=== PATIENT | female | born 1950 | race Caucasian/White ===

== ENCOUNTER 2017-11-26 14:00 | Inpatient (IN) | payer MEDICARE ==
[~2017-11-26] VITALS: Ht 149.9 cm; Wt 69.4 kg
[2017-11-26] MEDS ORDERED: BUPR150T17 PO (14:56)
[2017-11-26] MEDS ORDERED: LEVO100T5 PO (14:56)
[2017-11-26] MEDS ORDERED: [UNRECOGNIZED DRUG - CODE] PO (14:56)
[2017-11-26] MEDS ORDERED: BACL20TA PO (14:56)
[2017-11-26] MEDS ORDERED: LORA10TA75 PO (14:56)
[2017-11-26] MEDS ORDERED: TRAM50TA PO (14:56)
[2017-11-26 15:22] VITALS: BP 155/88
[2017-11-26 16:08] LABS: BILIRUBIN,URINE NEGATIVE (NEGATIVE); UROBILINOGEN,URINE NORMAL (NEGATIVE)
[2017-11-26 16:12] LABS: HEMOGLOBIN 13.4 g/dL (12.0-15.0); MEAN CELL HGB 32.8 pg (26-34); MEAN CELL HGB CONCENTRATION 33.6 g/dL (33-37); MEAN CORP VOLUME 97.8 fL (78-100); MEAN PLATELET VOLUME 10.6 fL (7.8-11.0); RED CELL DISTRIBUTION WIDTH 12.8 % (11.5-14.5); WHITE BLOOD CELL 9.7 10^3/uL (4.5-11.0)
[2017-11-26 16:25] LABS: CALCIUM 9.8 mg/dL (8.4-10.5); CARBON DIOXIDE 27.4 mmol/L (20.0-32)
[2017-11-26 16:31] LABS: APPEARANCE,URINE CLEAR (CLEAR); UA COLOR YELLOW (YELLOW)
--- NOTE | 2017-11-26 16:37 | DIREP ---
PROCEDURE:CHEST 2 VIEWS COMPARISON:None. INDICATIONS:PRE-OP OA RIGHT HIP FINDINGS: LUNGS/PLEURA:No significant pulmonary parenchymal abnormalities. No effusions. VASCULATURE:Normal. Unremarkable pulmonary vasculature. CARDIAC:Normal. No cardiac silhouette abnormality or cardiomegaly. MEDIASTINUM:Normal. No visible mass or adenopathy. BONES:No acute pathology. Mild degenerative changes of the spine. OTHER:Negative. CONCLUSION:No acute cardiac or pulmonary disease. Dictated by: Juan Thompson M.D. on 11/26/2017 at 04:36 PM
[2017-12-01] VITALS (10 sets, daily range): BP systolic 90–139; BP diastolic 58–80
[2017-12-01] MEDS ORDERED: LACTATED RINGERS 1,000 ML ONE ×2 (04:27→14:52)
[2017-12-01] MEDS ORDERED: VANCOMYCIN HCL 1 GM ONE (04:28)
[2017-12-01] MEDS ORDERED: NS 250ML 250 ML IV ONE ×2 (04:28→08:52)
[2017-12-01] MEDS ORDERED: BACTROBAN TP ONE (06:00)
[2017-12-01] MEDS: TYLENOL PO SCH ×4 (06:30→23:48)
[2017-12-01] MEDS ORDERED: NEURONTIN PO SCH ×2 (06:30→08:00)
[2017-12-01] MEDS ORDERED: TYLENOL PO ONE ×3 (06:30→09:15)
[2017-12-01] MEDS ORDERED: TYLENOL PO SCH (08:00)
[2017-12-01] MEDS ORDERED: CELEBREX PO ONE ×3 (08:00→09:00)
[2017-12-01] MEDS ORDERED: NEOSTIGMINE ONE (08:13)
[2017-12-01] MEDS ORDERED: LIDOCAINE 2% VIAL ONE (08:13)
[2017-12-01] MEDS ORDERED: ZOFRAN ONE (08:13)
[2017-12-01] MEDS ORDERED: DECADRON ONE (08:13)
[2017-12-01] MEDS ORDERED: QUELICIN ONE (08:14)
[2017-12-01] MEDS ORDERED: VERSED ONE (08:14)
[2017-12-01] MEDS ORDERED: DIPRIVAN IV ONE (08:14)
[2017-12-01] MEDS ORDERED: SUBLIMAZE ONE (08:14)
[2017-12-01] MEDS ORDERED: ZEMURON IV ONE (08:14)
[2017-12-01] MEDS ORDERED: NAROPIN 0.5% 5 MG/ML VIAL ONE (08:15)
[2017-12-01] MEDS ORDERED: DURAMORPH ONE (08:15)
[2017-12-01] MEDS ORDERED: CLONIDINE 1,000 MCG/10 ML VIAL EP ONE (08:15)
[2017-12-01] MEDS ORDERED: NS 100ML 200 ML IV ONE ×2 (08:52→14:52)
[2017-12-01] MEDS ORDERED: SODIUM CHLORIDE IR ONE (08:52)
[2017-12-01] MEDS ORDERED: NS 3000ML IRR IR ONE (08:52)
[2017-12-01] MEDS ORDERED: LACTATED RINGERS 1,000 ML IV SCH ×2 (09:00→14:30)
[2017-12-01] MEDS ORDERED: VANCOMYCIN HCL 1 GM in NS 250ML 250 ML IV ONE (09:00)
[2017-12-01] MEDS ORDERED: NEURONTIN ONE (09:15)
[2017-12-01] MEDS ORDERED: CELEBREX ONE (09:15)
[2017-12-01] MEDS ORDERED: TRANSDERM-SCOP TD ONE ×2 (09:16→09:27)
[2017-12-01] MEDS ORDERED: TRANEXAMIC ACID IV ONE (09:42)
[2017-12-01] MEDS ORDERED: ZOFRAN IV PRN ×2 (14:30→15:00)
[2017-12-01] MEDS ORDERED: VENTOLIN IH PRN (14:30)
[2017-12-01] MEDS ORDERED: MORPHINE SULFATE IV PRN (14:30)
[2017-12-01] MEDS ORDERED: DEMEROL IV PRN ×2 (14:30→15:00)
[2017-12-01] MEDS ORDERED: PHENERGAN IV PRN (14:30)
[2017-12-01] MEDS ORDERED: SUBLIMAZE IV PRN (14:30)
[2017-12-01] MEDS: LACTATED RINGERS 1,000 ML IV SCH (14:40)
[2017-12-01] MEDS ORDERED: EPHEDRINE SULFATE ONE (14:53)
[2017-12-01] MEDS ORDERED: ULTRAM PO PRN (15:00)
[2017-12-01] MEDS ORDERED: CEPACOL SORE THROAT LOZENGE MM PRN (15:00)
--- NOTE | 2017-12-01 15:35 | NUR ---
REPORT PT ARRIVED TO FLOOR , BEDSIDE REPORT RECEIVED, MONITORS INTACT CALL LIGHT IN REACH, HAND RAIL UP X2, PREVENA VAC NOTED TO RIGHT HIP, NO S/S OF DISTRESS NOTED, PT SLEEPING RR 16 EVEN AND UNLABORED. LEFT IN SEMIFOWLERS.
[2017-12-01] MEDS: ULTRAM PO PRN ×2 (16:23→20:47)
--- NOTE | 2017-12-01 16:42 | HPH ---
ADMIT DATE: 12/01/2017 CHIEF COMPLAINT: Painful right hip. HISTORY OF PRESENT ILLNESS: The patient is a 67-year-old female with a several year history of pain about the right hip secondary to osteoarthritis. She also has Sjogren syndrome. She is no better with Motrin 800 mg 3 times a day as well as tramadol. She complains of limping and has had to use a cane over the last several months. She complained of right groin pain as well as thigh pain and lower back pain. MEDICATIONS: Include tramadol, ibuprofen, levothyroxine, Wellbutrin, Macrodantin as well as inhalers. PREVIOUS SURGICAL PROCEDURES: Herniorrhaphy, tonsillectomy and 2 breast biopsies. PAST MEDICAL HISTORY: Include asthma, depression, GERD, history of urinary tract infections. ALLERGIES: THE PATIENT IS ALLERGIC TO ROCEPHIN WELL MORPHINE. SOCIAL HISTORY: The patient socially is . She does not smoke or drink. REVIEW OF SYSTEMS: Negative for chest pain, shortness of breath, nausea, vomiting, melena, hematochezia, dysuria, hematuria, fever, chills, or weight loss. FAMILY HISTORY: Positive for hypertension and coronary artery disease as well as asthma and COPD. PHYSICAL EXAMINATION: GENERAL: Shows that she is 4 feet 11 inches, weighs 150 pounds. HEENT: Within normal limits for her age. CHEST: Clear to auscultation. HEART: Regular rate and rhythm, no murmur. ABDOMEN: Soft and nontender. EXTREMITIES: The patient's right hip can be flexed to 95 degrees. She has about a 10 degree flexion contracture. The hip could be externally rotated 25 degrees. She has 10 degrees of internal rotation. NEUROLOGICAL: The patient is awake and alert. She is oriented x 3. Her cranial nerves 2-12 are grossly intact. She has 5/5 strength of all upper and lower extremities. IMAGING STUDIES: The patient's x-rays show that she is circumferentially [id number] about the right hip. ASSESSMENT: Osteoarthritis, right hip. Other diagnoses include asthma, history of urinary tract infection, GERD. PLAN: The patient is being taken to the operating room for right total hip arthroplasty. The risks and hazards of the procedure have been discussed with the patient. She understands the risk involved and wants to proceed as planned. Len Carter MD DR: DAVID/marlene JOB# [id number]
--- NOTE | 2017-12-01 16:45 | OPH ---
DATE OF SURGERY: 12/01/2017 PREOPERATIVE DIAGNOSIS: Osteoarthritis of the right hip. POSTOPERATIVE DIAGNOSIS: Osteoarthritis of the right hip. OPERATIVE PROCEDURE: Right total hip arthroplasty using Medacta size 0 stem with a 36 mm ceramic head and a size 50 acetabulum with size 50 polyethylene liner, making it a ceramic on polyethylene total hip arthroplasty. The patient had a short neck length with 50 acetabulum and a size 0 stem,. ANESTHESIA: General endotracheal. BLOOD LOSS: 600 mL. DRAINS: None. SURGEON: Len Carter MD DESCRIPTION OF INDICATIONS: A 67-year-old female with several year history of pain about the right hip secondary to osteoarthritis. She takes ibuprofen and tramadol for the pain. She has difficulty doing her daily activities and has pain with just household ambulation. She has to use a cane to ambulate. She tried therapy in the past without relief. X-rays show that she is circumferentially [id number] about the right hip. DESCRIPTION OF PROCEDURE: The patient was placed in the operating table in the supine position. A general endotracheal anesthetic was induced without difficulty. The patient had the right foot and ankle well padded and placed into the traction boot. Traction boot had a piece of egg crate mattress covering foot. The right lower extremity was then attached to the traction unit. Right lower extremity was then sterilely prepped and draped. The patient had an anterior incision made about the hip. The incision was taken through the skin and the subcutaneous tissues. The bleeding was controlled with cautery. The tensor fascia was opened in line with the skin incision and the muscle belly was reflected laterally. The patient then had the rectus fascia opened and the rectus muscle was reflected medially. The circumflex vessels were identified and coagulated with the Aquamantys device. The patient then had the fat pad over the anterior capsule excised. The capsular incision was made and the capsule was retracted proximally and laterally. The femoral neck cut was made and then a femoral head was removed from the acetabulum with a corkscrew device. The fovea was cleared of any soft tissue. The labrum was excised. The patient then had the acetabulum reamed up to a size initially 48 and then subsequently 50. The initial 48 acetabulum was placed, however, later in the case after we reduced the femoral component, It was obvious that the acetabular component was not stable. Therefore, the 48 acetabular component was removed and it was reamed up to a 50. We put a 50 press fit shell into the acetabulum and secured it with a posterior-superior screw. C-arm showed satisfactory tilt version with good stability and good fit. The patient then had the posterior ligaments released. The hip was placed into maximal external rotation and hyperextension. The patient had the canal opened with a curette and then subsequently with the canal finder. The canal was then sequentially reamed up to a size 0 with some difficulty. The patient's trial reduction was done with a 0 stem and a standard neck with a 36 mm short neck head. The hip was reduced. There was good stability clinically and radiographically. There may have been a little bit of difference in the leg length, but the patient had good stability. We elected to go with the stability option as opposed to the instability. The trial femoral components were then removed. The bone ends were copiously irrigated and dried. A size 0 AMIS stem was then press fit into position. The 36 ceramic head that was-3 neck was then impacted on to the Barrera taper neck. Again, the hip was reduced. There was good stability clinically and radiographically. The patient then had the wound irrigated with Betadine-containing solution for 3 minutes. The capsule was closed with 0 PDS in an interrupted manner. The tensor fascia was closed with a #2 PDS barbed in a running manner and the subcutaneous was closed with 2-0 barbed Monocryl. The skin was closed with adrianne. A Prevena suction dressing was applied. The patient was extubated in the operating room, sent to recovery in stable condition. Len Carter MD DR: DAVID/marlene JOB# [id number]
--- NOTE | 2017-12-01 16:57 | DIREP ---
PROCEDURE:XRAY HIP MIN 2VW-RT COMPARISON:None. INDICATIONS:postop FINDINGS: Arthroplasty the right hip joint in good alignment and without visualized complication. Postoperative adrianne overlying the skin. Expected subcutaneous emphysema. CONCLUSION: Arthroplasty of the right hip in good alignment and without visualized complication. Dictated by: Alen Benson DO on 12/01/2017 at 04:55 PM
[2017-12-01 18:11] LABS: HEMOGLOBIN 10.9 g/dL (12.0-15.0); MEAN CELL HGB 33.3 pg (26-34); MEAN CELL HGB CONCENTRATION 33.6 g/dL (33-37); MEAN CORP VOLUME 99.1 fL (78-100); MEAN PLATELET VOLUME 10.7 fL (7.8-11.0); RED CELL DISTRIBUTION WIDTH 12.9 % (11.5-14.5)
--- NOTE | 2017-12-01 18:22 | PRM.PN ---
Subjective Subjective Date: Dec 01, 2017 Time: 18:20 Subjective AWake and alert Eating dinner Afebrile VSS NVM+ Some pain HGB io.9 postop anemia from surgery expected Stable Patient History: Asthma G8 SISTER Cerebrovascular disorder 33 FATHER, , Age:84 Chronic obstructive pulmonary disease G8 BROTHER Congestive heart failure 33 FATHER, , Age:84 Diabetes mellitus 19 CHILD FH: skin cancer 33 FATHER, , Age:84 Hypertension 32 MOTHER, , Age:82 33 FATHER, , Age:84 No known health problems G8 SISTER 19 CHILD 19 CHILD 19 CHILD No Family History of: Alzheimer's disease Diabetes insipidus Parkinson's disease VTE VTE Risk Total Score: >5 VTE Risk Score VTE Risk: Score 0-1 = Low Risk (Aggressive mobilization; early ambulation; no VTE prophylaxis required) Score 2: Moderate Risk (Intermittent/Pneumatic Compression Device OR Lovenox/Heparin/Coumadin) Score 3-4: High Risk (Intermittent/Pneumatic Compression Device AND Lovenox/Heparin/Coumadin) Score > or =5: Highest Risk (Intermittent/Pneumatic Compression Device AND Lovenox/Heparin/Coumadin) Review of Systems Allergies: Coded Allergies: ceftriaxone (Verified Allergy, Severe, Anaphylaxis Shock, 11/26/17) ipratropium (Verified Allergy, Severe, BLISTERS IN MOUTH, 11/26/17) lettuce (Verified Allergy, Severe, Anaphylaxis Shock, 11/26/17) milk (Verified Allergy, Severe, Anaphylaxis Shock, 11/26/17) Scheduled Bupropion Hcl (Wellbutrin Xl), 1 TAB PO DAILY, (Reported) Levothyroxine Sodium (Levothyroxine Sodium), 1 TAB PO DAILY, (Reported) Loratadine (Claritin), 1 TAB PO DAILY, (Reported) Nitrofurantoin Macrocrystal (Macrodantin), 1 CAP PO HS, (Reported) Scheduled PRN Baclofen (Baclofen), 1 TAB PO HS PRN for MUSCLE SPASM, (Reported) Tramadol Hcl (Tramadol Hcl), 0.5 TAB PO TID PRN for PAIN, (Reported) Objective Vitals and I/O Vital Sign - Last 24 Hours 12/01/17 12/01/17 12/01/17 12/01/17 09:00 09:00 09:45 09:50 Temp 98.6 Pulse 80 72 68 Resp 19 18 16 B/P (MAP) 134/80 (98) 134/80 (98) 133/77 (95) Pulse Ox 95 97 98 O2 Delivery Room Air Room Air Nasal Canula Nasal Canula O2 Flow Rate 2 2 12/01/18 12/01/18 12/01/18 18 09:55 14:19 14:19 14:32 Temp 97.6 98.4 Pulse 67 68 60 Resp 18 16 16 B/P (MAP) 135/73 (93) 139/79 (99) 114/66 (82) Pulse Ox 98 100 100 O2 Delivery Nasal Canula Face Tent Face Tent O2 Flow Rate 2 10 10 3 12/01/12/01/17 12/01/17 12/01/17 14:49 15:04 15:31 16:21 Temp 98.1 98.9 Pulse 60 62 61 Resp 18 16 16 B/P (MAP) 112/62 (79) 110/71 (84) Pulse Ox 96 96 97 O2 Delivery Nasal Canula Nasal Canula Nasal Cannula Nasal Cannula O2 Flow Rate 3 3 1.50 2.00 FiO2 28 12/01/17 16:24 Resp 16 Pulse Ox 97 Course Sepsis Screening Results: Posi: NEGATIVE Sepsis Qualifier/Stage: NO DEFINITE RISK Vitals & review Data Vital Sign - Last 24 Hours 12/01/17 12/01/17 12/01/17 12/01/17 09:00 09:00 09:45 09:50 Temp 98.6 Pulse 80 72 68 Resp 19 18 16 B/P (MAP) 134/80 (98) 134/80 (98) 133/77 (95) Pulse Ox 95 97 98 O2 Delivery Room Air Room Air Nasal Canula Nasal Canula O2 Flow Rate 2 2 12/01/18 18 12/01/18 12/01/17 09:55 14:19 14:19 14:32 Temp 97.6 98.4 Pulse 67 68 60 Resp 18 16 16 B/P (MAP) 135/73 (93) 139/79 (99) 114/66 (82) Pulse Ox 98 100 100 O2 Delivery Nasal Canula Face Tent Face Tent O2 Flow Rate 2 10 10 3 12/01/17 12/01/1718 12/01/17 14:49 15:04 15:31 16:21 Temp 98.1 98.9 Pulse 60 62 61 Resp 18 16 16 B/P (MAP) 112/62 (79) 110/71 (84) Pulse Ox 96 96 97 O2 Delivery Nasal Canula Nasal Canula Nasal Cannula Nasal Cannula O2 Flow Rate 3 3 1.50 2.00 FiO2 28 12/01/17 16:24 Resp 16 Pulse Ox 97 Laboratory Tests Test 12/01/17 18:02 White Blood Count 21.0 10^3/uL Red Blood Count 3.27 10^6/uL Hemoglobin 10.9 g/dL Hematocrit 32.4 % Mean Corpuscular Volume 99.1 fL Mean Corpuscular Hemoglobin 33.3 pg Mean Corpuscular Hemoglobin Concent 33.6 g/dL Red Cell Distribution Width 12.9 % Platelet Count 308 10^3/uL Mean Platelet Volume 10.7 fL Current Medications Medications (Trade) Dose Ordered Sig/Evelin PRN Reason Start Time Stop Time Status Last Admin Acetaminophen (Tylenol) 1,000 mg Q6H 12/01/17 06:30 12/31/17 06:29 12/01/17 17:32 Albuterol Sulfate (Ventolin) 2.5 mg OT PRN WHEEZING 12/01/17 14:30 12/06/17 14:29 Celecoxib (Celebrex) 200 mg BID 12/01/17 21:00 12/31/17 20:59 Famotidine (Pepcid) 20 mg DAILY 12/02/17 09:00 01/01/18 08:59 Fentanyl Citrate (Sublimaze) 12.5 mcg Q5MIN PRN PAIN 12/01/17 14:30 12/02/17 14:29 Gabapentin (Neurontin) 400 mg Q24HRS 12/02/17 06:30 12/02/17 06:31 Gabapentin (Neurontin) 400 mg Q24HRS 12/02/17 08:00 12/02/17 08:01 Meperidine HCl (Demerol) 50 mg Q4HR PRN PAIN 8-10 12/01/17 15:00 12/31/17 14:59 Morphine Sulfate (Morphine Sulfate) 2 mg Q5MIN PRN PAIN MILD 12/01/17 14:30 12/02/17 14:29 Ondansetron HCl (Zofran) 4 mg PRN PRN nv 12/01/17 14:30 12/06/17 14:29 Ondansetron HCl (Zofran) 4 mg Q4H PRN NAUSEA / VOMITING 12/01/17 15:00 12/31/17 14:59 Promethazine HCl (Phenergan) 0.625 mg PRN PRN NAUSEA / VOMITING 12/01/17 14:30 12/06/17 14:29 Rivaroxaban (Xarelto) 10 mg DAILY 12/02/17 09:00 01/01/18 08:59 Throat Lozenges (Cepacol Sore Throat Lozenge) 1 each PRN PRN SORE THROAT 12/01/17 15:00 12/31/17 14:59 Tramadol HCl (Ultram) 50 mg Q6H PRN MILD PAIN 12/01/17 15:00 12/31/17 14:59 Tramadol HCl (Ultram) 100 mg Q6H PRN SEVERE PAIN 12/01/17 15:00 12/31/17 14:59 12/01/17 16:23 Vancomycin HCl 1 gm/Sodium Chloride 250 ml @ 175 mls/hr Q12H 12/01/17 21:00 12/02/17 22:26 SONJA KIM MD Dec 01, 2017 18:22
[2017-12-01] MEDS: CELEBREX PO SCH (20:46)
[2017-12-01] MEDS: BACTROBAN TP SCH ×2 (21:20→23:40)
[2017-12-01] MEDS: VANCOMYCIN HCL 1 GM in NS 250ML 250 ML IV SCH (21:31)
[2017-12-02] MEDS: ULTRAM PO PRN ×3 (02:58→19:38)
[2017-12-02 04:36] VITALS: BP 90/59
[2017-12-02 05:09] LABS: HEMOGLOBIN 9.1 g/dL (12.0-15.0); MEAN CELL HGB 32.6 pg (26-34); MEAN CELL HGB CONCENTRATION 32.5 g/dL (33-37); MEAN CORP VOLUME 100.4 fL (78-100); MEAN PLATELET VOLUME 10.7 fL (7.8-11.0); RED CELL DISTRIBUTION WIDTH 13.2 % (11.5-14.5); WHITE BLOOD CELL 12.6 10^3/uL (4.5-11.0)
[2017-12-02] MEDS: TYLENOL PO SCH ×3 (05:41→17:44)
[2017-12-02] MEDS ORDERED: NEURONTIN PO SCH ×2 (06:30→08:00)
--- NOTE | 2017-12-02 06:50 | NUR ---
REPORT RECEIVED REPORT, ASSUMED CARE OF PT
[2017-12-02] MEDS: LACTATED RINGERS 1,000 ML IV SCH ×3 (06:53→17:45)
[2017-12-02] MEDS: VANCOMYCIN HCL 1 GM in NS 250ML 250 ML IV SCH ×2 (08:18→20:59)
[2017-12-02] MEDS: CELEBREX PO SCH ×2 (08:19→20:59)
[2017-12-02] MEDS: PEPCID PO SCH (08:20)
[2017-12-02] MEDS: BACTROBAN TP SCH ×2 (08:21→22:43)
--- NOTE | 2017-12-02 08:26 | NUR ---
Post op pain rounds POD #1 after hip surgery and pain block. Pt is lying in bed. Has not ambulated as of yet. pt states that pain block wore off somewhere around 0100 this morning. No complications noted.
[2017-12-02 08:40] VITALS: BP 96/52
[2017-12-02] MEDS ORDERED: XARELTO PO SCH (09:00)
--- NOTE | 2017-12-02 10:25 | NUR ---
DISCHARGE PLAN CM VISITED WITH PATIENT REGARDING DISCHARGE PLAN AND NEEDS. PATIENT LIVES AT HOME WITH HER IN [place]. PT IS A RETIRED RN AND HER IS A VEGETABLE B[employer], PT'S STATES HE WILL BE AVAILABLE TO HELP PT DURING THE DAY WHILE SHE IS RECOVERING. PRIOR TO ADMISSION, PATIENT WAS VERY ACTIVE AND INDEPENDENT. PATIENT HAS A WALKER. SHE DOES NOT HAVE A SHOWER CHAIR. CM OFFERED TO ORDER A SHOWER CHAIR FOR PT, PT'S STATES THEY ARE ORDERING ONE ONLINE. CM DISCUSSED PT OPTIONS WITH PATIENT, PATIENT STATES THAT SHE IS PLANNING ON DOING HER OWN THERAPY AT HOME BECAUSE [place] OR TO HAVE HH COME OVER. PT DENIES NEED FOR ANY ADDITIONAL DME, HOME OXYGEN, OR HOME HEALTH AT THIS TIME. DISCHARGE PLAN IS TO DISCHARGE HOME WITH HER AND ROUTINE SELF CARE. CM DEPT WILL CONTINUE TO MONITOR DISCHARGE NEEDS.
[2017-12-02 12:34] VITALS: BP 102/59
[2017-12-02 16:34] VITALS: BP 94/53
--- NOTE | 2017-12-02 18:32 | PRM.PN ---
Subjective Subjective Date: Dec 02, 2017 Time: 18:29 Subjective Doing better this pm Ambulated in camara with PT VSS NVM+ BP 97/55 no symptoms HX of low BP as per pt HGB 9.1 postop anemia expected Cont with PT Patient History: Asthma G8 SISTER Cerebrovascular disorder 33 FATHER, , Age:84 Chronic obstructive pulmonary disease G8 BROTHER Congestive heart failure 33 FATHER, , Age:84 Diabetes mellitus 19 CHILD FH: skin cancer 33 FATHER, , Age:84 Hypertension 32 MOTHER, , Age:82 33 FATHER, , Age:84 No known health problems G8 SISTER 19 CHILD 19 CHILD 19 CHILD No Family History of: Alzheimer's disease Diabetes insipidus Parkinson's disease VTE VTE Risk Total Score: >5 VTE Risk Score VTE Risk: Score 0-1 = Low Risk (Aggressive mobilization; early ambulation; no VTE prophylaxis required) Score 2: Moderate Risk (Intermittent/Pneumatic Compression Device OR Lovenox/Heparin/Coumadin) Score 3-4: High Risk (Intermittent/Pneumatic Compression Device AND Lovenox/Heparin/Coumadin) Score > or =5: Highest Risk (Intermittent/Pneumatic Compression Device AND Lovenox/Heparin/Coumadin) Review of Systems Allergies: Coded Allergies: ceftriaxone (Verified Allergy, Severe, Anaphylaxis Shock, 11/26/17) ipratropium (Verified Allergy, Severe, BLISTERS IN MOUTH, 11/26/17) lettuce (Verified Allergy, Severe, Anaphylaxis Shock, 11/26/17) milk (Verified Allergy, Severe, Anaphylaxis Shock, 11/26/17) Scheduled Bupropion Hcl (Wellbutrin Xl), 1 TAB PO DAILY, (Reported) Levothyroxine Sodium (Levothyroxine Sodium), 1 TAB PO DAILY, (Reported) Loratadine (Claritin), 1 TAB PO DAILY, (Reported) Nitrofurantoin Macrocrystal (Macrodantin), 1 CAP PO HS, (Reported) Scheduled PRN Baclofen (Baclofen), 1 TAB PO HS PRN for MUSCLE SPASM, (Reported) Tramadol Hcl (Tramadol Hcl), 0.5 TAB PO TID PRN for PAIN, (Reported) Objective Vitals and I/O Vital Sign - Last 24 Hours 12/01/17 12/01/17 12/01/17 12/01/17 20:00 20:13 22:50 23:57 Temp 97.7 97.5 Pulse 65 60 59 Resp 16 16 16 B/P (MAP) 90/58 (69) 93/60 (71) Pulse Ox 97 97 97 O2 Delivery Room Air Nasal Cannula Nasal Cannula Nasal Canula O2 Flow Rate 1.50 2.00 1.50 12/02/17 12/02/17 12/02/17 12/02/17 04:36 07:09 08:40 09:39 Temp 98.2 98.0 Pulse 68 67 72 Resp 18 18 18 B/P (MAP) 90/59 (69) 96/52 (67) Pulse Ox 98 96 98 O2 Delivery Nasal Canula Nasal Cannula Room Air Nasal Cannula O2 Flow Rate 1.50 2.00 2.00 FiO2 28 12/02/17 12/02/17 12/02/17 12:34 16:34 17:44 Temp 96.7 97.8 Pulse 66 71 Resp 18 18 B/P (MAP) 102/59 (73) 94/53 (67) Pulse Ox 94 91 O2 Delivery Room Air Room Air Nasal Cannula O2 Flow Rate 2.00 Intake and Output 12/01/17 12/01/17 12/02/17 15:00 23:00 07:00 Intake Total 9000 ml 2140 ml 300 ml Output Total 450 ml 190 ml 450 ml Balance 8550 ml 1950 ml -150 ml Course Sepsis Screening Results: Posi: NEGATIVE Sepsis Qualifier/Stage: NO DEFINITE RISK Vitals & review Data Vital Sign - Last 24 Hours 12/01/17 12/01/17 12/01/17 12/01/17 09:00 09:00 09:45 09:50 Temp 98.6 Pulse 80 72 68 Resp 19 18 16 B/P (MAP) 134/80 (98) 134/80 (98) 133/77 (95) Pulse Ox 95 97 98 O2 Delivery Room Air Room Air Nasal Canula Nasal Canula O2 Flow Rate 2 2 12/01/17 12/01/17 12/01/17 12/01/17 09:55 14:19 14:19 14:32 Temp 97.6 98.4 Pulse 67 68 60 Resp 18 16 16 B/P (MAP) 135/73 (93) 139/79 (99) 114/66 (82) Pulse Ox 98 100 100 O2 Delivery Nasal Canula Face Tent Face Tent O2 Flow Rate 2 10 10 3 12/01/17 12/01/17 12/01/17 12/01/17 14:49 15:04 15:31 16:21 Temp 98.1 98.9 Pulse 60 62 61 Resp 18 16 16 B/P (MAP) 112/62 (79) 110/71 (84) Pulse Ox 96 96 97 O2 Delivery Nasal Canula Nasal Canula Nasal Cannula Nasal Cannula O2 Flow Rate 3 3 1.50 2.00 FiO2 28 12/01/17 16:24 Resp 16 Pulse Ox 97 Laboratory Tests Test 12/01/17 18:02 White Blood Count 21.0 10^3/uL Red Blood Count 3.27 10^6/uL Hemoglobin 10.9 g/dL Hematocrit 32.4 % Mean Corpuscular Volume 99.1 fL Mean Corpuscular Hemoglobin 33.3 pg Mean Corpuscular Hemoglobin Concent 33.6 g/dL Red Cell Distribution Width 12.9 % Platelet Count 308 10^3/uL Mean Platelet Volume 10.7 fL Current Medications Medications (Trade) Dose Ordered Sig/Evelin PRN Reason Start Time Stop Time Status Last Admin Acetaminophen (Tylenol) 1,000 mg Q6H 12/01/17 06:30 12/31/17 06:29 12/01/17 17:32 Albuterol Sulfate (Ventolin) 2.5 mg OT PRN WHEEZING 12/01/17 14:30 12/06/17 14:29 Celecoxib (Celebrex) 200 mg BID 12/01/17 21:00 12/31/17 20:59 Famotidine (Pepcid) 20 mg DAILY 12/02/17 09:00 01/01/18 08:59 Fentanyl Citrate (Sublimaze) 12.5 mcg Q5MIN PRN PAIN 12/01/17 14:30 12/02/17 14:29 Gabapentin (Neurontin) 400 mg Q24HRS 12/02/17 06:30 12/02/17 06:31 Gabapentin (Neurontin) 400 mg Q24HRS 12/02/17 08:00 12/02/17 08:01 Meperidine HCl (Demerol) 50 mg Q4HR PRN PAIN 8-10 12/01/17 15:00 12/31/17 14:59 Morphine Sulfate (Morphine Sulfate) 2 mg Q5MIN PRN PAIN MILD 12/01/17 14:30 12/02/17 14:29 Ondansetron HCl (Zofran) 4 mg PRN PRN nv 12/01/17 14:30 12/06/17 14:29 Ondansetron HCl (Zofran) 4 mg Q4H PRN NAUSEA / VOMITING 12/01/17 15:00 12/31/17 14:59 Promethazine HCl (Phenergan) 0.625 mg PRN PRN NAUSEA / VOMITING 12/01/17 14:30 12/06/17 14:29 Rivaroxaban (Xarelto) 10 mg DAILY 12/02/17 09:00 01/01/18 08:59 Throat Lozenges (Cepacol Sore Throat Lozenge) 1 each PRN PRN SORE THROAT 12/01/17 15:00 12/31/17 14:59 Tramadol HCl (Ultram) 50 mg Q6H PRN MILD PAIN 12/01/17 15:00 12/31/17 14:59 Tramadol HCl (Ultram) 100 mg Q6H PRN SEVERE PAIN 12/01/17 15:00 12/31/17 14:59 12/01/17 16:23 Vancomycin HCl 1 gm/Sodium Chloride 250 ml @ 175 mls/hr Q12H 12/01/17 21:00 12/02/17 22:26 SONJA KIM MD Dec 02, 2017 18:32
--- NOTE | 2017-12-02 19:04 | NUR ---
REPORT REPORT GIVEN TO O/C SHIFT
[2017-12-02 20:17] VITALS: BP 95/52
[2017-12-02] MEDS ORDERED: NS 250ML 250 ML IV ONE (20:53)
[2017-12-02] MEDS ORDERED: VANCOMYCIN HCL 1 GM ONE (20:53)
[2017-12-03] VITALS (7 sets, daily range): BP systolic 94–134; BP diastolic 55–78
[2017-12-03] MEDS: TYLENOL PO SCH ×5 (00:02→23:43)
[2017-12-03] MEDS: ULTRAM PO PRN ×3 (04:18→17:43)
[2017-12-03 05:14] LABS: HEMOGLOBIN 7.8 g/dL (12.0-15.0); MEAN CELL HGB 32.4 pg (26-34); MEAN CELL HGB CONCENTRATION 31.7 g/dL (33-37); MEAN CORP VOLUME 102.1 fL (78-100); MEAN PLATELET VOLUME 10.7 fL (7.8-11.0); RED CELL DISTRIBUTION WIDTH 13.6 % (11.5-14.5); WHITE BLOOD CELL 8.5 10^3/uL (4.5-11.0)
[2017-12-03] MEDS: LACTATED RINGERS 1,000 ML IV SCH ×2 (06:40→12:52)
--- NOTE | 2017-12-03 07:08 | NUR ---
PT HBG IS 7.[address] BECK. NO ORDERS RECEIVED AT THIS TIME.
--- NOTE | 2017-12-03 08:52 | PRM.PN ---
Subjective Subjective Date: Dec 03, 2017 Time: 08:50 Subjective Pain better today afebrile vss HGB 7.9 will repeat later today Cont with PT Hold xarelto Patient History: Asthma G8 SISTER Cerebrovascular disorder 33 FATHER, , Age:84 Chronic obstructive pulmonary disease G8 BROTHER Congestive heart failure 33 FATHER, , Age:84 Diabetes mellitus 19 CHILD FH: skin cancer 33 FATHER, , Age:84 Hypertension 32 MOTHER, , Age:82 33 FATHER, , Age:84 No known health problems G8 SISTER 19 CHILD 19 CHILD 19 CHILD No Family History of: Alzheimer's disease Diabetes insipidus Parkinson's disease VTE VTE Risk Total Score: >5 VTE Risk Score VTE Risk: Score 0-1 = Low Risk (Aggressive mobilization; early ambulation; no VTE prophylaxis required) Score 2: Moderate Risk (Intermittent/Pneumatic Compression Device OR Lovenox/Heparin/Coumadin) Score 3-4: High Risk (Intermittent/Pneumatic Compression Device AND Lovenox/Heparin/Coumadin) Score > or =5: Highest Risk (Intermittent/Pneumatic Compression Device AND Lovenox/Heparin/Coumadin) Review of Systems Allergies: Coded Allergies: ceftriaxone (Verified Allergy, Severe, Anaphylaxis Shock, 11/26/17) ipratropium (Verified Allergy, Severe, BLISTERS IN MOUTH, 11/26/17) lettuce (Verified Allergy, Severe, Anaphylaxis Shock, 11/26/17) milk (Verified Allergy, Severe, Anaphylaxis Shock, 11/26/17) Scheduled Bupropion Hcl (Wellbutrin Xl), 1 TAB PO DAILY, (Reported) Levothyroxine Sodium (Levothyroxine Sodium), 1 TAB PO DAILY, (Reported) Loratadine (Claritin), 1 TAB PO DAILY, (Reported) Nitrofurantoin Macrocrystal (Macrodantin), 1 CAP PO HS, (Reported) Scheduled PRN Baclofen (Baclofen), 1 TAB PO HS PRN for MUSCLE SPASM, (Reported) Tramadol Hcl (Tramadol Hcl), 0.5 TAB PO TID PRN for PAIN, (Reported) Objective Vitals and I/O Vital Sign - Last 24 Hours 12/02/17 12/02/17 12/02/17 12/02/17 09:39 12:34 16:34 17:44 Temp 96.7 97.8 Pulse 72 66 71 Resp 18 18 18 B/P (MAP) 102/59 (73) 94/53 (67) Pulse Ox 98 94 91 O2 Delivery Nasal Cannula Room Air Room Air Nasal Cannula O2 Flow Rate 2.00 2.00 FiO2 28 12/02/17 12/02/17 12/02/17 12/03/17 19:25 20:17 23:57 00:39 Temp 98.1 98.4 Pulse 68 78 70 Resp 16 18 16 B/P (MAP) 95/52 (66) 94/60 (71) Pulse Ox 96 97 94 O2 Delivery Room Air Room Air Room Air Room Air 12/03/17 12/03/17 05:16 07:27 Temp 98.0 Pulse 70 Resp 16 B/P (MAP) 103/62 (76) Pulse Ox 92 O2 Delivery Room Air Room Air Intake and Output 12/02/17 12/02/17 12/03/17 15:00 23:00 07:00 Intake Total 400 ml 940 ml 400 ml Output Total 700 ml 2300 ml Balance 400 ml 240 ml -1900 ml Course Sepsis Screening Results: Posi: NEGATIVE Sepsis Qualifier/Stage: NO DEFINITE RISK Vitals & review Data Vital Sign - Last 24 Hours 12/01/17 12/01/17 12/01/17 12/01/17 09:00 09:00 09:45 09:50 Temp 98.6 Pulse 80 72 68 Resp 19 18 16 B/P (MAP) 134/80 (98) 134/80 (98) 133/77 (95) Pulse Ox 95 97 98 O2 Delivery Room Air Room Air Nasal Canula Nasal Canula O2 Flow Rate 2 2 12/01/17 12/01/17 12/01/17 12/01/17 09:55 14:19 14:19 14:32 Temp 97.6 98.4 Pulse 67 68 60 Resp 18 16 16 B/P (MAP) 135/73 (93) 139/79 (99) 114/66 (82) Pulse Ox 98 100 100 O2 Delivery Nasal Can[place] Face Tent Face Tent O2 Flow Rate 2 10 10 3 12/01/17 12/01/17 12/01/17 12/01/17 14:49 15:04 15:31 16:21 Temp 98.1 98.9 Pulse 60 62 61 Resp 18 16 16 B/P (MAP) 112/62 (79) 110/71 (84) Pulse Ox 96 96 97 O2 Delivery Nasal Canula Nasal Canula Nasal Cannula Nasal Cannula O2 Flow Rate 3 3 1.50 2.00 FiO2 28 12/01/17 16:24 Resp 16 Pulse Ox 97 Laboratory Tests Test 12/01/17 18:02 White Blood Count 21.0 10^3/uL Red Blood Count 3.27 10^6/uL Hemoglobin 10.9 g/dL Hematocrit 32.4 % Mean Corpuscular Volume 99.1 fL Mean Corpuscular Hemoglobin 33.3 pg Mean Corpuscular Hemoglobin Concent 33.6 g/dL Red Cell Distribution Width 12.9 % Platelet Count 308 10^3/uL Mean Platelet Volume 10.7 fL Current Medications Medications (Trade) Dose Ordered Sig/Evelin PRN Reason Start Time Stop Time Status Last Admin Acetaminophen (Tylenol) 1,000 mg Q6H 12/01/17 06:30 12/31/17 06:29 12/01/17 17:32 Albuterol Sulfate (Ventolin) 2.5 mg OT PRN WHEEZING 12/01/17 14:30 12/06/17 14:29 Celecoxib (Celebrex) 200 mg BID 12/01/17 21:00 12/31/17 20:59 Famotidine (Pepcid) 20 mg DAILY 12/02/17 09:00 01/01/18 08:59 Fentanyl Citrate (Sublimaze) 12.5 mcg Q5MIN PRN PAIN 12/01/17 14:30 12/02/17 14:29 Gabapentin (Neurontin) 400 mg Q24HRS 12/02/17 06:30 12/02/17 06:31 Gabapentin (Neurontin) 400 mg Q24HRS 12/02/17 08:00 12/02/17 08:01 Meperidine HCl (Demerol) 50 mg Q4HR PRN PAIN 8-10 12/01/17 15:00 12/31/17 14:59 Morphine Sulfate (Morphine Sulfate) 2 mg Q5MIN PRN PAIN MILD 12/01/17 14:30 12/02/17 14:29 Ondansetron HCl (Zofran) 4 mg PRN PRN nv 12/01/17 14:30 12/06/17 14:29 Ondansetron HCl (Zofran) 4 mg Q4H PRN NAUSEA / VOMITING 12/01/17 15:00 12/31/17 14:59 Promethazine HCl (Phenergan) 0.625 mg PRN PRN NAUSEA / VOMITING 12/01/17 14:30 12/06/17 14:29 Rivaroxaban (Xarelto) 10 mg DAILY 12/02/17 09:00 01/01/18 08:59 Throat Lozenges (Cepacol Sore Throat Lozenge) 1 each PRN PRN SORE THROAT 12/01/17 15:00 12/31/17 14:59 Tramadol HCl (Ultram) 50 mg Q6H PRN MILD PAIN 12/01/17 15:00 12/31/17 14:59 Tramadol HCl (Ultram) 100 mg Q6H PRN SEVERE PAIN 12/01/17 15:00 12/31/17 14:59 12/01/17 16:23 Vancomycin HCl 1 gm/Sodium Chloride 250 ml @ 175 mls/hr Q12H 12/01/17 21:00 12/02/17 22:26 SONJA KIM MD Dec 03, 2017 08:52
[2017-12-03] MEDS: PEPCID PO SCH (09:13)
[2017-12-03] MEDS: CLARITIN PO SCH (09:14)
[2017-12-03] MEDS: BACTROBAN TP SCH ×2 (09:14→20:30)
[2017-12-03] MEDS: SYNTHROID PO SCH (09:14)
[2017-12-03] MEDS: CELEBREX PO SCH ×2 (09:14→20:30)
[2017-12-03] MEDS: WELLBUTRIN XL PO SCH (09:14)
--- NOTE | 2017-12-03 14:29 | NUR ---
STATUS PATIENT RESTING IN BED WATCHING TV. PATIENT DENIES NEEDS OR PAIN AT THIS TIME. BED IN LOW LOCKED POSITION WITH SIDE RAILS UP X2. SCD'S ON AND PUMPING. CALL LIGHT WITHIN REACH. SPOUSE AT BEDSIDE.
[2017-12-03 15:21] LABS: HEMOGLOBIN 8.5 g/dL (12.0-15.0); MEAN CELL HGB 32.4 pg (26-34); MEAN CELL HGB CONCENTRATION 32.1 g/dL (33-37); MEAN CORP VOLUME 101.1 fL (78-100); MEAN PLATELET VOLUME 10.8 fL (7.8-11.0); RED CELL DISTRIBUTION WIDTH 13.5 % (11.5-14.5); WHITE BLOOD CELL 11.2 10^3/uL (4.5-11.0)
--- NOTE | 2017-12-03 15:48 | NUR ---
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 ONCE PATIENT WAS PLACED BACK IN BED AND RESTING PAIN LEVEL DECREASED BACK TO BASELINE. KIMBERLY WARREN PT PLACED CALL TO NOTIFY DR. KIM OF EVENT.
--- NOTE | 2017-12-03 15:50 | NUR ---
ABNORMAL LABS WBC LEVEL ELEVATED. DR KIM NOTIFIED.
--- NOTE | 2017-12-03 16:00 | NUR ---
PAIN PATIENT HAVING INCREASED PAIN AT /10. PATIENT DECLINES PRN DEMORAL STATING THAT IT MAKES HER DRY HEAVE. CALL PLACED TO DR. KIM WITH NEW ORDER RECEIVED FOR FENTANYL 25MCG Q6H PRN.
[2017-12-03] MEDS: SUBLIMAZE IV PRN ×3 (16:16→22:20)
--- NOTE | 2017-12-03 16:20 | NUR ---
X-RAY X-RAY AT BEDSIDE.
--- NOTE | 2017-12-03 16:54 | DIREP ---
PROCEDURE:XRAY HIP MIN 2VW-RT COMPARISON:None. INDICATIONS:CHECK PLACEMENT OF POST OF HIP REPLACEMENT, WAS DOING PT AND FELT POP FINDINGS: BONES:Right hip replacement again seen. There is a new displaced fracture through greater trochanter. JOINTS:Right hip replacement. SOFT TISSUES:Stable soft tissue clips overlying the right hip and right sided soft tissue drain. OTHER:No additional findings. CONCLUSION:New fracture line through the greater trochanter. Stable right hip replacement. Dictated by: Juan Soliman MD on 12/03/2017 at 04:49 PM
--- NOTE | 2017-12-03 17:00 | NUR ---
HURLEY 16FR HURLEY CATHETER INSERTED VIA STERILE TECHNIQUE WITH CLEAR URINE NOTED. PATIENT TOLERATED INSERTION WELL WITH NO SWELLING TO INSERTION AREA.
--- NOTE | 2017-12-03 18:10 | NUR ---
Dr. Raul Carter at bedside. New orders received.
--- NOTE | 2017-12-03 18:19 | PRM.PN ---
Subjective Subjective Date: Dec 03, 2017 Time: 18:14 Subjective Pt felt sudden pain in right hip while geeting into bed this afternoon Prior to that she was doing fine with walker and transfers HGB 8.5 Coming up Xrays show minimally displaced greater trochanteric fx Will treat conservatively at this point Replace lynn Hold PT Patient History: Asthma G8 SISTER Cerebrovascular disorder 33 FATHER, , Age:84 Chronic obstructive pulmonary disease G8 BROTHER Congestive heart failure 33 FATHER, , Age:84 Diabetes mellitus 19 CHILD FH: skin cancer 33 FATHER, , Age:84 Hypertension 32 MOTHER, , Age:82 33 FATHER, , Age:84 No known health problems G8 SISTER 19 CHILD 19 CHILD 19 CHILD No Family History of: Alzheimer's disease Diabetes insipidus Parkinson's disease VTE VTE Risk Total Score: >5 VTE Risk Score VTE Risk: Score 0-1 = Low Risk (Aggressive mobilization; early ambulation; no VTE prophylaxis required) Score 2: Moderate Risk (Intermittent/Pneumatic Compression Device OR Lovenox/Heparin/Coumadin) Score 3-4: High Risk (Intermittent/Pneumatic Compression Device AND Lovenox/Heparin/Coumadin) Score > or =5: Highest Risk (Intermittent/Pneumatic Compression Device AND Lovenox/Heparin/Coumadin) Review of Systems Allergies: Coded Allergies: ceftriaxone (Verified Allergy, Severe, Anaphylaxis Shock, 11/26/17) ipratropium (Verified Allergy, Severe, BLISTERS IN MOUTH, 11/26/17) lettuce (Verified Allergy, Severe, Anaphylaxis Shock, 11/26/17) milk (Verified Allergy, Severe, Anaphylaxis Shock, 11/26/17) Scheduled Bupropion Hcl (Wellbutrin Xl), 1 TAB PO DAILY, (Reported) Levothyroxine Sodium (Levothyroxine Sodium), 1 TAB PO DAILY, (Reported) Loratadine (Claritin), 1 TAB PO DAILY, (Reported) Nitrofurantoin Macrocrystal (Macrodantin), 1 CAP PO HS, (Reported) Scheduled PRN Baclofen (Baclofen), 1 TAB PO HS PRN for MUSCLE SPASM, (Reported) Tramadol Hcl (Tramadol Hcl), 0.5 TAB PO TID PRN for PAIN, (Reported) Objective Vitals and I/O Vital Sign - Last 24 Hours 12/02/17 12/02/17 12/02/17 12/03/17 19:25 20:17 23:57 00:39 Temp 98.1 98.4 Pulse 68 78 70 Resp 16 18 16 B/P (MAP) 95/52 (66) 94/60 (71) Pulse Ox 96 97 94 O2 Delivery Room Air Room Air Room Air Room Air 12/03/17 12/03/17 12/03/17 12/03/17 05:16 07:27 08:52 09:41 Temp 98.0 98.8 Pulse 70 77 78 Resp 16 18 18 B/P (MAP) 103/62 (76) 119/70 (86) Pulse Ox 92 93 99 O2 Delivery Room Air Room Air Room Air Room Air FiO2 21 12/03/17 12/03/17 11:33 15:42 Temp 98.4 97.1 Pulse 67 70 Resp 18 18 B/P (MAP) 108/65 (79) 121/77 (92) Pulse Ox 96 93 O2 Delivery Room Air Room Air Intake and Output 12/02/17 12/02/17 12/03/17 15:00 23:00 07:00 Intake Total 400 ml 940 ml 400 ml Output Total 700 ml 2300 ml Balance 400 ml 240 ml -1900 ml Course Sepsis Screening Results: Posi: NEGATIVE Sepsis Qualifier/Stage: NO DEFINITE RISK Vitals & review Data Vital Sign - Last 24 Hours 12/01/17 12/01/17 12/01/17 12/01/17 09:00 09:00 09:45 09:50 Temp 98.6 Pulse 80 72 68 Resp 19 18 16 B/P (MAP) 134/80 (98) 134/80 (98) 133/77 (95) Pulse Ox 95 97 98 O2 Delivery Room Air Room Air Nasal Canula Nasal Canula O2 Flow Rate 2 2 12/01/17 12/01/17 12/01/17 12/01/17 09:55 14:19 14:19 14:32 Temp 97.6 98.4 Pulse 67 68 60 Resp 18 16 16 B/P (MAP) 135/73 (93) 139/79 (99) 114/66 (82) Pulse Ox 98 100 100 O2 Delivery Nasal Canula Face Tent Face Tent O2 Flow Rate 2 10 10 3 12/01/17 12/01/17 12/01/17 12/01/17 14:49 15:04 15:31 16:21 Temp 98.1 98.9 Pulse 60 62 61 Resp 18 16 16 B/P (MAP) 112/62 (79) 110/71 (84) Pulse Ox 96 96 97 O2 Delivery Nasal Canula Nasal Canula Nasal Cannula Nasal Cannula O2 Flow Rate 3 3 1.50 2.00 FiO2 28 12/01/17 16:24 Resp 16 Pulse Ox 97 Laboratory Tests Test 12/01/17 18:02 White Blood Count 21.0 10^3/uL Red Blood Count 3.27 10^6/uL Hemoglobin 10.9 g/dL Hematocrit 32.4 % Mean Corpuscular Volume 99.1 fL Mean Corpuscular Hemoglobin 33.3 pg Mean Corpuscular Hemoglobin Concent 33.6 g/dL Red Cell Distribution Width 12.9 % Platelet Count 308 10^3/uL Mean Platelet Volume 10.7 fL Current Medications Medications (Trade) Dose Ordered Sig/Evelin PRN Reason Start Time Stop Time Status Last Admin Acetaminophen (Tylenol) 1,000 mg Q6H 12/01/17 06:30 12/31/17 06:29 12/01/17 17:32 Albuterol Sulfate (Ventolin) 2.5 mg OT PRN WHEEZING 12/01/17 14:30 12/06/17 14:29 Celecoxib (Celebrex) 200 mg BID 12/01/17 21:00 12/31/17 20:59 Famotidine (Pepcid) 20 mg DAILY 12/02/17 09:00 01/01/18 08:59 Fentanyl Citrate (Sublimaze) 12.5 mcg Q5MIN PRN PAIN 12/01/17 14:30 12/02/17 14:29 Gabapentin (Neurontin) 400 mg Q24HRS 12/02/17 06:30 12/02/17 06:31 Gabapentin (Neurontin) 400 mg Q24HRS 12/02/17 08:00 12/02/17 08:01 Meperidine HCl (Demerol) 50 mg Q4HR PRN PAIN 8-10 12/01/17 15:00 12/31/17 14:59 Morphine Sulfate (Morphine Sulfate) 2 mg Q5MIN PRN PAIN MILD 12/01/17 14:30 12/02/17 14:29 Ondansetron HCl (Zofran) 4 mg PRN PRN nv 12/01/17 14:30 12/06/17 14:29 Ondansetron HCl (Zofran) 4 mg Q4H PRN NAUSEA / VOMITING 12/01/17 15:00 12/31/17 14:59 Promethazine HCl (Phenergan) 0.625 mg PRN PRN NAUSEA / VOMITING 12/01/17 14:30 12/06/17 14:29 Rivaroxaban (Xarelto) 10 mg DAILY 12/02/17 09:00 01/01/18 08:59 Throat Lozenges (Cepacol Sore Throat Lozenge) 1 each PRN PRN SORE THROAT 12/01/17 15:00 12/31/17 14:59 Tramadol HCl (Ultram) 50 mg Q6H PRN MILD PAIN 12/01/17 15:00 12/31/17 14:59 Tramadol HCl (Ultram) 100 mg Q6H PRN SEVERE PAIN 12/01/17 15:00 12/31/17 14:59 12/01/17 16:23 Vancomycin HCl 1 gm/Sodium Chloride 250 ml @ 175 mls/hr Q12H 12/01/17 21:00 12/02/17 22:26 SONJA KIM MD Dec 03, 2017 18:19
--- NOTE | 2017-12-03 18:29 | NUR ---
REPORT REPORT GIVEN TO HORSE BUYER.
--- NOTE | 2017-12-03 18:34 | NUR ---
report [id number] report from offgoing shift
[2017-12-04] MEDS: ULTRAM PO PRN ×4 (02:03→20:26)
[2017-12-04] MEDS: LACTATED RINGERS 1,000 ML IV SCH ×3 (02:40→22:40)
[2017-12-04] MEDS: SUBLIMAZE IV PRN ×3 (04:24→23:31)
[2017-12-04 04:39] VITALS: BP 122/78
[2017-12-04 04:57] LABS: HEMOGLOBIN 8.8 g/dL (12.0-15.0); MEAN CELL HGB 32.8 pg (26-34); MEAN CELL HGB CONCENTRATION 32.5 g/dL (33-37); MEAN CORP VOLUME 101.1 fL (78-100); MEAN PLATELET VOLUME 10.4 fL (7.8-11.0); RED CELL DISTRIBUTION WIDTH 13.5 % (11.5-14.5); WHITE BLOOD CELL 8.7 10^3/uL (4.5-11.0)
[2017-12-04] MEDS: SYNTHROID PO SCH (05:45)
[2017-12-04] MEDS: TYLENOL PO SCH ×4 (05:46→23:30)
--- NOTE | 2017-12-04 06:45 | NUR ---
REPORT REPORT RECEIVED FROM Yana HANSON RN
--- NOTE | 2017-12-04 06:53 | NUR ---
report report given to o/c shift
[2017-12-04 08:18] VITALS: BP 139/80
[2017-12-04] MEDS: WELLBUTRIN XL PO SCH (08:27)
[2017-12-04] MEDS: CELEBREX PO SCH ×2 (08:27→20:25)
[2017-12-04] MEDS: VALIUM PO PRN ×2 (08:27→19:05)
[2017-12-04] MEDS: CLARITIN PO SCH (08:27)
[2017-12-04] MEDS: PEPCID PO SCH (08:27)
[2017-12-04] MEDS: BACTROBAN TP SCH ×2 (08:28→20:26)
--- NOTE | 2017-12-04 11:10 | NUR ---
STATUS PT LAYING IN BED AT THIS TIME. PT C/O PAIN LEVEL OF 5. VALIUM AND TRAMADOL ADMINISTERED. AT BEDSIDE CALL LIGHT IN REACH
[2017-12-04] MEDS: COLACE PO SCH ×2 (12:44→20:25)
--- NOTE | 2017-12-04 14:27 | NUR ---
AMBULATION PT ATTEMPTED TO AMBULATE TO THE BATHROOM WITH INSTRUCTIONS FROM DR. KIM THAT PT CAN ONLY BARE 25% WEIGHT ON THE RIGHT LEG. PT WAS UNABLE TO STAND UP FROM SITTING POSITION. PT WAS PIVOTED [place] [facility] [place]. PT HAD A SMALL BM. PT WAS ABLE TO PIVOT BACK TO BED IN THE SAME MANOR. NO OTHER NEEDS NOTED AT THIS TIME. CALL LIGHT IN REACH
[2017-12-04 15:35] VITALS: BP 123/73
--- NOTE | 2017-12-04 19:00 | NUR ---
Report Received report from Castillo Stoner RN
--- NOTE | 2017-12-04 19:08 | PRM.PN ---
Subjective Subjective Date: Dec 04, 2017 Time: 19:05 Subjective Pt still with significant pain Unable to ambulate in room with Nursing staff VSS HGB 8.8 Cont with Bedrest and restart PT in am Patient History: Asthma G8 SISTER Cerebrovascular disorder 33 FATHER, , Age:84 Chronic obstructive pulmonary disease G8 BROTHER Congestive heart failure 33 FATHER, , Age:84 Diabetes mellitus 19 CHILD FH: skin cancer 33 FATHER, , Age:84 Hypertension 32 MOTHER, , Age:82 33 FATHER, , Age:84 No known health problems G8 SISTER 19 CHILD 19 CHILD 19 CHILD No Family History of: Alzheimer's disease Diabetes insipidus Parkinson's disease VTE VTE Risk Total Score: >5 VTE Risk Score VTE Risk: Score 0-1 = Low Risk (Aggressive mobilization; early ambulation; no VTE prophylaxis required) Score 2: Moderate Risk (Intermittent/Pneumatic Compression Device OR Lovenox/Heparin/Coumadin) Score 3-4: High Risk (Intermittent/Pneumatic Compression Device AND Lovenox/Heparin/Coumadin) Score > or =5: Highest Risk (Intermittent/Pneumatic Compression Device AND Lovenox/Heparin/Coumadin) Review of Systems Allergies: Coded Allergies: ceftriaxone (Verified Allergy, Severe, Anaphylaxis Shock, 11/26/17) ipratropium (Verified Allergy, Severe, BLISTERS IN MOUTH, 11/26/17) lettuce (Verified Allergy, Severe, Anaphylaxis Shock, 11/26/17) milk (Verified Allergy, Severe, Anaphylaxis Shock, 11/26/17) Scheduled Bupropion Hcl (Wellbutrin Xl), 1 TAB PO DAILY, (Reported) Levothyroxine Sodium (Levothyroxine Sodium), 1 TAB PO DAILY, (Reported) Loratadine (Claritin), 1 TAB PO DAILY, (Reported) Nitrofurantoin Macrocrystal (Macrodantin), 1 CAP PO HS, (Reported) Scheduled PRN Baclofen (Baclofen), 1 TAB PO HS PRN for MUSCLE SPASM, (Reported) Tramadol Hcl (Tramadol Hcl), 0.5 TAB PO TID PRN for PAIN, (Reported) Objective Vitals and I/O Vital Sign - Last 24 Hours 12/03/17 12/03/17 12/03/17 12/03/17 19:20 19:40 21:18 23:44 Temp 98.7 99.2 Pulse 78 78 87 Resp 18 18 17 B/P (MAP) 134/78 (96) 110/55 (73) Pulse Ox 98 98 94 O2 Delivery Room Air Room Air Room Air Room Air 12/04/17 12/04/17 12/04/17 12/04/17 04:39 08:18 09:38 09:48 Temp 96.5 98.4 Pulse 74 69 81 Resp 16 18 18 B/P (MAP) 122/78 (93) 139/80 (99) Pulse Ox 93 98 99 O2 Delivery Room Air Room Air Room Air Room Air FiO2 21 12/04/17 12/04/17 15:35 17:31 Temp 98.4 Pulse 76 Resp 17 17 B/P (MAP) 123/73 (90) Pulse Ox 97 97 O2 Delivery Room Air Intake and Output 12/03/17 12/03/17 12/04/17 15:00 23:00 07:00 Intake Total 360 ml 900 ml Output Total 1800 ml 1110 ml Balance 360 ml -900 ml -1110 ml Course Sepsis Screening Results: Posi: NEGATIVE Sepsis Qualifier/Stage: NO DEFINITE RISK Vitals & review Data Vital Sign - Last 24 Hours 12/01/17 12/01/17 12/01/17 12/01/17 09:00 09:00 09:45 09:50 Temp 98.6 Pulse 80 72 68 Resp 19 18 16 B/P (MAP) 134/80 (98) 134/80 (98) 133/77 (95) Pulse Ox 95 97 98 O2 Delivery Room Air Room Air Nasal Canula Nasal Canula O2 Flow Rate 2 2 12/01/17 12/01/17 12/01/17 12/01/17 09:55 14:19 14:19 14:32 Temp 97.6 98.4 Pulse 67 68 60 Resp 18 16 16 B/P (MAP) 135/73 (93) 139/79 (99) 114/66 (82) Pulse Ox 98 100 100 O2 Delivery Nasal Canula Face Tent Face Tent O2 Flow Rate 2 10 10 3 12/01/17 12/01/17 12/01/17 12/01/17 14:49 15:04 15:31 16:21 Temp 98.1 98.9 Pulse 60 62 61 Resp 18 16 16 B/P (MAP) 112/62 (79) 110/71 (84) Pulse Ox 96 96 97 O2 Delivery Nasal Canula Nasal Canula Nasal Cannula Nasal Cannula O2 Flow Rate 3 3 1.50 2.00 FiO2 28 12/01/17 16:24 Resp 16 Pulse Ox 97 Laboratory Tests Test 12/01/17 18:02 White Blood Count 21.0 10^3/uL Red Blood Count 3.27 10^6/uL Hemoglobin 10.9 g/dL Hematocrit 32.4 % Mean Corpuscular Volume 99.1 fL Mean Corpuscular Hemoglobin 33.3 pg Mean Corpuscular Hemoglobin Concent 33.6 g/dL Red Cell Distribution Width 12.9 % Platelet Count 308 10^3/uL Mean Platelet Volume 10.7 fL Current Medications Medications (Trade) Dose Ordered Sig/Evelin PRN Reason Start Time Stop Time Status Last Admin Acetaminophen (Tylenol) 1,000 mg Q6H 12/01/17 06:30 12/31/17 06:29 12/01/17 17:32 Albuterol Sulfate (Ventolin) 2.5 mg OT PRN WHEEZING 12/01/17 14:30 12/06/17 14:29 Celecoxib (Celebrex) 200 mg BID 12/01/17 21:00 12/31/17 20:59 Famotidine (Pepcid) 20 mg DAILY 12/02/17 09:00 01/01/18 08:59 Fentanyl Citrate (Sublimaze) 12.5 mcg Q5MIN PRN PAIN 12/01/17 14:30 12/02/17 14:29 Gabapentin (Neurontin) 400 mg Q24HRS 12/02/17 06:30 12/02/17 06:31 Gabapentin (Neurontin) 400 mg Q24HRS 12/02/17 08:00 12/02/17 08:01 Meperidine HCl (Demerol) 50 mg Q4HR PRN PAIN 8-10 12/01/17 15:00 12/31/17 14:59 Morphine Sulfate (Morphine Sulfate) 2 mg Q5MIN PRN PAIN MILD 12/01/17 14:30 12/02/17 14:29 Ondansetron HCl (Zofran) 4 mg PRN PRN nv 12/01/17 14:30 12/06/17 14:29 Ondansetron HCl (Zofran) 4 mg Q4H PRN NAUSEA / VOMITING 12/01/17 15:00 12/31/17 14:59 Promethazine HCl (Phenergan) 0.625 mg PRN PRN NAUSEA / VOMITING 12/01/17 14:30 12/06/17 14:29 Rivaroxaban (Xarelto) 10 mg DAILY 12/02/17 09:00 01/01/18 08:59 Throat Lozenges (Cepacol Sore Throat Lozenge) 1 each PRN PRN SORE THROAT 12/01/17 15:00 12/31/17 14:59 Tramadol HCl (Ultram) 50 mg Q6H PRN MILD PAIN 12/01/17 15:00 12/31/17 14:59 Tramadol HCl (Ultram) 100 mg Q6H PRN SEVERE PAIN 12/01/17 15:00 12/31/17 14:59 12/01/17 16:23 Vancomycin HCl 1 gm/Sodium Chloride 250 ml @ 175 mls/hr Q12H 12/01/17 21:00 12/02/17 22:26 SONJA KIM MD Dec 04, 2017 19:08
--- NOTE | 2017-12-04 19:09 | NUR ---
REPORT REPORT GIVEN TO ONCOMING SHIFT
[2017-12-04 19:46] VITALS: BP 136/87
[2017-12-05 01:17] VITALS: BP 127/80
[2017-12-05 04:14] VITALS: BP 138/87
[2017-12-05 05:38] LABS: HEMOGLOBIN 8.6 g/dL (12.0-15.0); MEAN CELL HGB 32.2 pg (26-34); MEAN CELL HGB CONCENTRATION 32.1 g/dL (33-37); MEAN CORP VOLUME 100.4 fL (78-100); MEAN PLATELET VOLUME 10.7 fL (7.8-11.0); RED CELL DISTRIBUTION WIDTH 13.4 % (11.5-14.5); WHITE BLOOD CELL 8.7 10^3/uL (4.5-11.0)
[2017-12-05] MEDS: SYNTHROID PO SCH (05:56)
[2017-12-05] MEDS: TYLENOL PO SCH ×3 (05:57→18:52)
--- NOTE | 2017-12-05 06:34 | NUR ---
Report Report given to ISABEL Liang
[2017-12-05 07:15] VITALS: BP 138/89
[2017-12-05] MEDS: LACTATED RINGERS 1,000 ML IV SCH ×2 (08:40→18:40)
--- NOTE | 2017-12-05 09:17 | NUR ---
Pt GOT STAT ORDER FOR CT SCAN , Pt OFF THE FLOOR FOR CT SCAN.
[2017-12-05] MEDS: ULTRAM PO SCH ×4 (09:30→20:45)
--- NOTE | 2017-12-05 09:35 | NUR ---
Pt BACK TO FLOOR FROM CT SCAN IN STRETCHER.
[2017-12-05] MEDS: ULTRAM PO PRN ×2 (09:47→17:27)
[2017-12-05] MEDS: XARELTO PO SCH (09:47)
[2017-12-05] MEDS: VALIUM PO PRN ×2 (09:47→17:27)
[2017-12-05] MEDS: PEPCID PO SCH (09:48)
[2017-12-05] MEDS: WELLBUTRIN XL PO SCH (09:48)
[2017-12-05] MEDS: COLACE PO SCH ×2 (09:48→20:46)
[2017-12-05] MEDS: CELEBREX PO SCH ×2 (09:48→20:46)
[2017-12-05] MEDS: CLARITIN PO SCH (09:48)
--- NOTE | 2017-12-05 09:50 | NUR ---
Pt REQUESTED TO GET 100MG PRN ULTRAM INSTEAD OF SCHEDULED 50 MG ULTRAM. ADMINISTERED 100 MG PRN ULTRAM FOR pAIN " 01/06" IN R HIP.
[2017-12-05] MEDS: BACTROBAN TP SCH ×2 (09:54→20:46)
--- NOTE | 2017-12-05 09:55 | DIREP ---
This report includes an Addendum and supersedes previous reports for this exam. This report includes an Addendum and supersedes previous reports for this exam. PROCEDURE:CT LOWER EXTREMITY-RT W/O COMPARISON:None. INDICATIONS:POST OP PAIN OR RIGHT HIP TECHNIQUE:Axial sections through the right hip were performed with sagittal and coronal reconstructions from source images. No contrast was administered. FINDINGS: BONES:There are no fractures. JOINTS:The patient has had right total hip arthroplasty. The prosthesis is in good position with no evidence of loosening. SOFT TISSUES:Fluid is present anterior to the right hip medial to the tensor fascia radha muscle with collection measuring approximately 4.42 x 1.81 x 2.24 cm (cc by medial-lateral by AP) on coronal series 17110, image 38 and axial series 3, image 48. Foci of air are present in the soft tissues anterior and lateral to the right hip is well as deep to the iliacus muscle on the right side of the pelvis. OTHER:Vásquez catheter in the bladder. CONCLUSION: 1. The patient has had right total hip arthroplasty. There are no fractures. 2. Fluid in the anterior soft tissues with scattered foci of air also present. Dictated by: Dharmesh Landry M.D. on 12/05/2017 at 09:44 AM NDUM: 3D images are also submitted. These show no additional abnormalities. Dictated by: Dharmesh Landry M.D. on 12/05/2017 at 12:07 PM NDUM: There is a fracture of the greater trochanter which is nondisplaced demonstrated on axial series 4, image 27 and series 34722 images 11-23. Lucent line demonstrated on coronal series 96825, image 26 distal to the femoral stem is felt to be a nutrient vessel as this lucency is round on axial series 4 images 65-72. Dictated by: Dharmesh Landry M.D. on 12/05/2017 at 12:59 PM
--- NOTE | 2017-12-05 10:16 | NUR ---
NPO Pt NPO PER ORDER OF DR FLOWERS, Pt WAS NOTIFIED THAT SHE CAN NOT EAT OR DRINK, PT VERBALIZED UNDERSTANDING,
--- NOTE | 2017-12-05 10:25 | NUR ---
BEDREST PER ORDER OF DR. KIM, Pt TO BE BEDREST.
--- NOTE | 2017-12-05 11:30 | NUR ---
DISCHARGE PLAN/UPDATE CM FOLLOWED UP WITH PATIENT AND REGARDING SWING BED PLACEMENT. PATIENT STATES SHE WANTS TO GO TO A SWING BED FACILITY AFTER DISCHARGE BUT DOESN'T KNOW WHETHER SHE WANTS TO GO TO [facility] SWING BED IN [place] OR [facility] SWING BED IN [place]. REFERRALS SENT TO BOTH FACILITIES. PATIENT'S IS GOING TO VISIT EACH FACILITY AND MAKE A DECISION ON WHICH ONE THEY WANT HER TO GO TO. DISCHARGE GOAL IS TO DISCHARGE TO A SWING BED FACILITY. CM DEPT WILL CONTINUE TO MONITOR DISCHARGE NEEDS.
[2017-12-05 12:24] VITALS: BP 121/73
--- NOTE | 2017-12-05 13:18 | NUR ---
DR KIM AT THE BEDSIDE.
--- NOTE | 2017-12-05 13:33 | PRM.PN ---
Subjective Subjective Date: Dec 05, 2017 Time: 13:30 Subjective Pt up to BR with walker today Needs fentyl to control pain VSS HGB 8.5 CT scan of right femur did not show any other distal fxs Will restart PT Patient History: Asthma G8 SISTER Cerebrovascular disorder 33 FATHER, , Age:84 Chronic obstructive pulmonary disease G8 BROTHER Congestive heart failure 33 FATHER, , Age:84 Diabetes mellitus 19 CHILD FH: skin cancer 33 FATHER, , Age:84 Hypertension 32 MOTHER, , Age:82 33 FATHER, , Age:84 No known health problems G8 SISTER 19 CHILD 19 CHILD 19 CHILD No Family History of: Alzheimer's disease Diabetes insipidus Parkinson's disease VTE VTE Risk Total Score: >5 VTE Risk Score VTE Risk: Score 0-1 = Low Risk (Aggressive mobilization; early ambulation; no VTE prophylaxis required) Score 2: Moderate Risk (Intermittent/Pneumatic Compression Device OR Lovenox/Heparin/Coumadin) Score 3-4: High Risk (Intermittent/Pneumatic Compression Device AND Lovenox/Heparin/Coumadin) Score > or =5: Highest Risk (Intermittent/Pneumatic Compression Device AND Lovenox/Heparin/Coumadin) Review of Systems Allergies: Coded Allergies: ceftriaxone (Verified Allergy, Severe, Anaphylaxis Shock, 11/26/17) ipratropium (Verified Allergy, Severe, BLISTERS IN MOUTH, 11/26/17) lettuce (Verified Allergy, Severe, Anaphylaxis Shock, 11/26/17) milk (Verified Allergy, Severe, Anaphylaxis Shock, 11/26/17) Scheduled Bupropion Hcl (Wellbutrin Xl), 1 TAB PO DAILY, (Reported) Levothyroxine Sodium (Levothyroxine Sodium), 1 TAB PO DAILY, (Reported) Loratadine (Claritin), 1 TAB PO DAILY, (Reported) Nitrofurantoin Macrocrystal (Macrodantin), 1 CAP PO HS, (Reported) Scheduled PRN Baclofen (Baclofen), 1 TAB PO HS PRN for MUSCLE SPASM, (Reported) Tramadol Hcl (Tramadol Hcl), 0.5 TAB PO TID PRN for PAIN, (Reported) Objective Vitals and I/O Vital Sign - Last 24 Hours 12/04/17 12/04/17 12/04/17 12/04/17 15:35 17:31 19:46 19:53 Temp 98.4 98.4 Pulse 76 88 Resp 17 17 16 B/P (MAP) 123/73 (90) 136/87 (103) Pulse Ox 97 97 95 O2 Delivery Room Air Room Air Room Air 12/05/17 12/05/17 12/05/17 12/05/17 01:17 04:14 07:15 07:15 Temp 97.3 97.9 98.2 Pulse 66 68 105 Resp 16 16 18 B/P (MAP) 127/80 (96) 138/87 (104) 138/89 (105) Pulse Ox 97 97 97 O2 Delivery Room Air Room Air Room Air Room Air 12/05/17 12/05/17 07:44 12:24 Temp 98.6 Pulse 75 81 Resp 18 18 B/P (MAP) 121/73 (89) Pulse Ox 96 97 O2 Delivery Room Air Room Air FiO2 21 Intake and Output 12/04/17 12/04/17 12/05/17 15:00 23:00 07:00 Intake Total 900 ml Output Total 1400 ml Balance -500 ml Course Sepsis Screening Results: Posi: NEGATIVE Sepsis Qualifier/Stage: NO DEFINITE RISK Vitals & review Data Vital Sign - Last 24 Hours 12/01/17 12/01/17 12/01/17 12/01/17 09:00 09:00 09:45 09:50 Temp 98.6 Pulse 80 72 68 Resp 19 18 16 B/P (MAP) 134/80 (98) 134/80 (98) 133/77 (95) Pulse Ox 95 97 98 O2 Delivery Room Air Room Air Nasal Canula Nasal Canula O2 Flow Rate 2 2 12/01/17 12/01/17 12/01/17 12/01/17 09:55 14:19 14:19 14:32 Temp 97.6 98.4 Pulse 67 68 60 Resp 18 16 16 B/P (MAP) 135/73 (93) 139/79 (99) 114/66 (82) Pulse Ox 98 100 100 O2 Delivery Nasal [place] Face Tent Face Tent O2 Flow Rate 2 10 10 3 12/01/17 12/01/17 12/01/17 12/01/17 14:49 15:04 15:31 16:21 Temp 98.1 98.9 Pulse 60 62 61 Resp 18 16 16 B/P (MAP) 112/62 (79) 110/71 (84) Pulse Ox 96 96 97 O2 Delivery Nasal Canula Nasal Canula Nasal Cannula Nasal Cannula O2 Flow Rate 3 3 1.50 2.00 FiO2 28 12/01/17 16:24 Resp 16 Pulse Ox 97 Laboratory Tests Test 12/01/17 18:02 White Blood Count 21.0 10^3/uL Red Blood Count 3.27 10^6/uL Hemoglobin 10.9 g/dL Hematocrit 32.4 % Mean Corpuscular Volume 99.1 fL Mean Corpuscular Hemoglobin 33.3 pg Mean Corpuscular Hemoglobin Concent 33.6 g/dL Red Cell Distribution Width 12.9 % Platelet Count 308 10^3/uL Mean Platelet Volume 10.7 fL Current Medications Medications (Trade) Dose Ordered Sig/Evelin PRN Reason Start Time Stop Time Status Last Admin Acetaminophen (Tylenol) 1,000 mg Q6H 12/01/17 06:30 12/31/17 06:29 12/01/17 17:32 Albuterol Sulfate (Ventolin) 2.5 mg OT PRN WHEEZING 12/01/17 14:30 12/06/17 14:29 Celecoxib (Celebrex) 200 mg BID 12/01/17 21:00 12/31/17 20:59 Famotidine (Pepcid) 20 mg DAILY 12/02/17 09:00 01/01/18 08:59 Fentanyl Citrate (Sublimaze) 12.5 mcg Q5MIN PRN PAIN 12/01/17 14:30 12/02/17 14:29 Gabapentin (Neurontin) 400 mg Q24HRS 12/02/17 06:30 12/02/17 06:31 Gabapentin (Neurontin) 400 mg Q24HRS 12/02/17 08:00 12/02/17 08:01 Meperidine HCl (Demerol) 50 mg Q4HR PRN PAIN 8-10 12/01/17 15:00 12/31/17 14:59 Morphine Sulfate (Morphine Sulfate) 2 mg Q5MIN PRN PAIN MILD 12/01/17 14:30 12/02/17 14:29 Ondansetron HCl (Zofran) 4 mg PRN PRN nv 12/01/17 14:30 12/06/17 14:29 Ondansetron HCl (Zofran) 4 mg Q4H PRN NAUSEA / VOMITING 12/01/17 15:00 12/31/17 14:59 Promethazine HCl (Phenergan) 0.625 mg PRN PRN NAUSEA / VOMITING 12/01/17 14:30 12/06/17 14:29 Rivaroxaban (Xarelto) 10 mg DAILY 12/02/17 09:00 01/01/18 08:59 Throat Lozenges (Cepacol Sore Throat Lozenge) 1 each PRN PRN SORE THROAT 12/01/17 15:00 12/31/17 14:59 Tramadol HCl (Ultram) 50 mg Q6H PRN MILD PAIN 12/01/17 15:00 12/31/17 14:59 Tramadol HCl (Ultram) 100 mg Q6H PRN SEVERE PAIN 12/01/17 15:00 12/31/17 14:59 12/01/17 16:23 Vancomycin HCl 1 gm/Sodium Chloride 250 ml @ 175 mls/hr Q12H 12/01/17 21:00 12/02/17 22:26 SONJA KIM MD Dec 05, 2017 13:33
[2017-12-05 16:20] VITALS: BP 130/72
--- NOTE | 2017-12-05 17:27 | NUR ---
Pt REQUESTED TO GET 100MG PRN ULTRAM INSTEAD OF SCHEDULED 50 MG ULTRAM FOR 1600, ALSO REQUESTED TO GET 5 MG VALIUM STATES "THAT HELPS WITH PAIN TOO". ADMINISTERED 100 MG PRN ULTRAM FOR pAIN " 01/06" IN R HIP AND VALIUM 5 MG PER REQUEST OF Pt.
[2017-12-05 19:00] VITALS: BP 139/84
--- NOTE | 2017-12-05 19:14 | NUR ---
REPORT GAVE REPORT TO NIGHT NURSE CHARLES DOW.
--- NOTE | 2017-12-05 19:55 | NUR ---
pt up to BR from chair assisted by , pt is able to have a BM., them back to bed, call light in reach
[2017-12-06 00:09] VITALS: BP 135/76
[2017-12-06] MEDS: TYLENOL PO SCH ×5 (00:15→23:55)
[2017-12-06] MEDS: ULTRAM PO SCH ×7 (00:15→23:55)
[2017-12-06 03:55] VITALS: BP 121/76
[2017-12-06] MEDS: LACTATED RINGERS 1,000 ML IV SCH ×3 (04:40→23:56)
[2017-12-06] MEDS: SYNTHROID PO SCH (05:50)
[2017-12-06 06:07] LABS: HEMOGLOBIN 8.5 g/dL (12.0-15.0); MEAN CELL HGB 32.6 pg (26-34); MEAN CELL HGB CONCENTRATION 32.1 g/dL (33-37); MEAN CORP VOLUME 101.5 fL (78-100); MEAN PLATELET VOLUME 10.3 fL (7.8-11.0); RED CELL DISTRIBUTION WIDTH 13.6 % (11.5-14.5); WHITE BLOOD CELL 7.6 10^3/uL (4.5-11.0)
--- NOTE | 2017-12-06 06:36 | NUR ---
REPORT TO RUTH HALL
--- NOTE | 2017-12-06 06:55 | NUR ---
REPORT REPORT RECEIVED FROM STEM PROCESSING MACHINE OPERATOR
[2017-12-06 07:44] VITALS: BP 121/80
[2017-12-06] MEDS: CELEBREX PO SCH ×2 (08:43→21:01)
[2017-12-06] MEDS: PEPCID PO SCH (08:44)
[2017-12-06] MEDS: WELLBUTRIN XL PO SCH (08:44)
[2017-12-06] MEDS: ULTRAM PO PRN ×2 (08:44→15:24)
[2017-12-06] MEDS: COLACE PO SCH ×2 (08:44→21:01)
[2017-12-06] MEDS: XARELTO PO SCH (08:44)
[2017-12-06] MEDS: VALIUM PO PRN ×3 (08:44→21:01)
[2017-12-06] MEDS: CLARITIN PO SCH (08:44)
[2017-12-06] MEDS: BACTROBAN TP SCH ×2 (08:45→21:00)
--- NOTE | 2017-12-06 10:02 | NUR ---
STATUS PT IN BED AT THIS TIME. PT STATES THERE IS NO PAIN WHEN LYING STILL. PT RATES PAIN AT A 3 OUT OF 10. PT DENIES ANY NEEDS AT THIS TIME. WILL CONT TO MONITOR CALL LIGHT IN REACH
--- NOTE | 2017-12-06 11:21 | PRM.PN ---
Subjective Subjective Date: Dec 06, 2017 Time: 11:18 Subjective Pt still having difficulty with pain when transferring Very limited physicallly VSS HGB 8.5 Wound ok Cont with pain control and PT Patient History: Asthma G8 SISTER Cerebrovascular disorder 33 FATHER, , Age:84 Chronic obstructive pulmonary disease G8 BROTHER Congestive heart failure 33 FATHER, , Age:84 Diabetes mellitus 19 CHILD FH: skin cancer 33 FATHER, , Age:84 Hypertension 32 MOTHER, , Age:82 33 FATHER, , Age:84 No known health problems G8 SISTER 19 CHILD 19 CHILD 19 CHILD No Family History of: Alzheimer's disease Diabetes insipidus Parkinson's disease VTE VTE Risk Total Score: >5 VTE Risk Score VTE Risk: Score 0-1 = Low Risk (Aggressive mobilization; early ambulation; no VTE prophylaxis required) Score 2: Moderate Risk (Intermittent/Pneumatic Compression Device OR Lovenox/Heparin/Coumadin) Score 3-4: High Risk (Intermittent/Pneumatic Compression Device AND Lovenox/Heparin/Coumadin) Score > or =5: Highest Risk (Intermittent/Pneumatic Compression Device AND Lovenox/Heparin/Coumadin) Review of Systems Allergies: Coded Allergies: ceftriaxone (Verified Allergy, Severe, Anaphylaxis Shock, 11/26/17) ipratropium (Verified Allergy, Severe, BLISTERS IN MOUTH, 11/26/17) lactose (Verified Allergy, Severe, 12/06/17) lettuce (Verified Allergy, Severe, Anaphylaxis Shock, 11/26/17) Scheduled Bupropion Hcl (Wellbutrin Xl), 1 TAB PO DAILY, (Reported) Levothyroxine Sodium (Levothyroxine Sodium), 1 TAB PO DAILY, (Reported) Loratadine (Claritin), 1 TAB PO DAILY, (Reported) Nitrofurantoin Macrocrystal (Macrodantin), 1 CAP PO HS, (Reported) Scheduled PRN Baclofen (Baclofen), 1 TAB PO HS PRN for MUSCLE SPASM, (Reported) Tramadol Hcl (Tramadol Hcl), 0.5 TAB PO TID PRN for PAIN, (Reported) Objective Vitals and I/O Vital Sign - Last 24 Hours 12/05/17 12/05/17 12/05/17 12/05/17 12:24 16:20 19:00 19:00 Temp 98.6 97.5 98.8 Pulse 81 97 71 Resp 18 18 18 B/P (MAP) 121/73 (89) 130/72 (91) 139/84 (102) Pulse Ox 97 97 98 O2 Delivery Room Air Room Air Room Air Room Air 12/05/17 12/06/17 12/06/17 12/06/17 23:08 00:09 03:55 07:44 Temp 98.2 97.5 98.0 Pulse 71 74 74 71 Resp 18 18 B/P (MAP) 135/76 (95) 121/76 (91) 121/80 (94) Pulse Ox 98 96 O2 Delivery Room Air Room Air Room Air Room Air 12/06/17 07:46 O2 Delivery Room Air Intake and Output 12/05/17 12/05/17 12/06/17 15:00 23:00 07:00 Intake Total 400 ml Output Total 600 ml 400 ml 400 ml Balance -600 ml 0 ml -400 ml Course Sepsis Screening Results: Posi: NEGATIVE Sepsis Qualifier/Stage: NO DEFINITE RISK Vitals & review Data Vital Sign - Last 24 Hours 12/01/17 12/01/17 12/01/17 12/01/17 09:00 09:00 09:45 09:50 Temp 98.6 Pulse 80 72 68 Resp 19 18 16 B/P (MAP) 134/80 (98) 134/80 (98) 133/77 (95) Pulse Ox 95 97 98 O2 Delivery Room Air Room Air Nasal Canula Nasal Canula O2 Flow Rate 2 2 12/01/17 12/01/17 12/01/17 12/01/17 09:55 14:19 14:19 14:32 Temp 97.6 98.4 Pulse 67 68 60 Resp 18 16 16 B/P (MAP) 135/73 (93) 139/79 (99) 114/66 (82) Pulse Ox 98 100 100 O2 Delivery Nasal [place] Face Tent Face Tent O2 Flow Rate 2 10 10 3 12/01/17 12/01/17 12/01/17 12/01/17 14:49 15:04 15:31 16:21 Temp 98.1 98.9 Pulse 60 62 61 Resp 18 16 16 B/P (MAP) 112/62 (79) 110/71 (84) Pulse Ox 96 96 97 O2 Delivery Nasal Canula Nasal Canula Nasal Cannula Nasal Cannula O2 Flow Rate 3 3 1.50 2.00 FiO2 28 12/01/17 16:24 Resp 16 Pulse Ox 97 Laboratory Tests Test 12/01/17 18:02 White Blood Count 21.0 10^3/uL Red Blood Count 3.27 10^6/uL Hemoglobin 10.9 g/dL Hematocrit 32.4 % Mean Corpuscular Volume 99.1 fL Mean Corpuscular Hemoglobin 33.3 pg Mean Corpuscular Hemoglobin Concent 33.6 g/dL Red Cell Distribution Width 12.9 % Platelet Count 308 10^3/uL Mean Platelet Volume 10.7 fL Current Medications Medications (Trade) Dose Ordered Sig/Evelin PRN Reason Start Time Stop Time Status Last Admin Acetaminophen (Tylenol) 1,000 mg Q6H 12/01/17 06:30 12/31/17 06:29 12/01/17 17:32 Albuterol Sulfate (Ventolin) 2.5 mg OT PRN WHEEZING 12/01/17 14:30 12/06/17 14:29 Celecoxib (Celebrex) 200 mg BID 12/01/17 21:00 12/31/17 20:59 Famotidine (Pepcid) 20 mg DAILY 12/02/17 09:00 01/01/18 08:59 Fentanyl Citrate (Sublimaze) 12.5 mcg Q5MIN PRN PAIN 12/01/17 14:30 12/02/17 14:29 Gabapentin (Neurontin) 400 mg Q24HRS 12/02/17 06:30 12/02/17 06:31 Gabapentin (Neurontin) 400 mg Q24HRS 12/02/17 08:00 12/02/17 08:01 Meperidine HCl (Demerol) 50 mg Q4HR PRN PAIN 8-10 12/01/17 15:00 12/31/17 14:59 Morphine Sulfate (Morphine Sulfate) 2 mg Q5MIN PRN PAIN MILD 12/01/17 14:30 12/02/17 14:29 Ondansetron HCl (Zofran) 4 mg PRN PRN nv 12/01/17 14:30 12/06/17 14:29 Ondansetron HCl (Zofran) 4 mg Q4H PRN NAUSEA / VOMITING 12/01/17 15:00 12/31/17 14:59 Promethazine HCl (Phenergan) 0.625 mg PRN PRN NAUSEA / VOMITING 12/01/17 14:30 12/06/17 14:29 Rivaroxaban (Xarelto) 10 mg DAILY 12/02/17 09:00 01/01/18 08:59 Throat Lozenges (Cepacol Sore Throat Lozenge) 1 each PRN PRN SORE THROAT 12/01/17 15:00 12/31/17 14:59 Tramadol HCl (Ultram) 50 mg Q6H PRN MILD PAIN 12/01/17 15:00 12/31/17 14:59 Tramadol HCl (Ultram) 100 mg Q6H PRN SEVERE PAIN 12/01/17 15:00 12/31/17 14:59 12/01/17 16:23 Vancomycin HCl 1 gm/Sodium Chloride 250 ml @ 175 mls/hr Q12H 12/01/17 21:00 12/02/17 22:26 SONJA KIM MD Dec 06, 2017 11:20
[2017-12-06 11:54] VITALS: BP 133/69
[2017-12-06 16:02] VITALS: BP 115/65
--- NOTE | 2017-12-06 18:42 | NUR ---
REPORT REPORT GIVEN TO ONCOMING SHIFT
[2017-12-06 19:15] VITALS: BP 125/72
--- NOTE | 2017-12-06 21:01 | NUR ---
Valium 5mg po given per prn order and pt request
[2017-12-07] VITALS (7 sets, daily range): BP systolic 127–136; BP diastolic 72–84
[2017-12-07] MEDS: ULTRAM PO SCH ×6 (03:52→23:57)
[2017-12-07] MEDS: SUBLIMAZE IV PRN ×2 (04:27→22:17)
--- NOTE | 2017-12-07 04:27 | NUR ---
Fentyl 25mcg iv given for pain
[2017-12-07] MEDS: TYLENOL PO SCH ×3 (05:40→18:29)
[2017-12-07] MEDS: SYNTHROID PO SCH (05:40)
--- NOTE | 2017-12-07 06:14 | NUR ---
Vásquez catheter discontinued at this time, 9cc of water removed from bulb and catheter removed with out difficulty, pt tolerated well, DTV will report to oncoming shift
--- NOTE | 2017-12-07 06:43 | NUR ---
[facility]
--- NOTE | 2017-12-07 06:43 | NUR ---
REPORT REPORT RECEIVED FROM CHARLES DOW ASSUMED CARE OF PT
[2017-12-07] MEDS: CLARITIN PO SCH (08:04)
[2017-12-07] MEDS: PEPCID PO SCH (08:04)
[2017-12-07] MEDS: COLACE PO SCH ×2 (08:04→22:07)
[2017-12-07] MEDS: XARELTO PO SCH (08:05)
[2017-12-07] MEDS: BACTROBAN TP SCH ×2 (08:05→21:00)
[2017-12-07] MEDS: VALIUM PO PRN ×3 (08:05→19:58)
[2017-12-07] MEDS: CELEBREX PO SCH ×2 (08:05→22:07)
[2017-12-07] MEDS: WELLBUTRIN XL PO SCH (08:05)
[2017-12-07 08:33] LABS: HEMOGLOBIN 9.2 g/dL (12.0-15.0); MEAN CELL HGB 32.6 pg (26-34); MEAN CELL HGB CONCENTRATION 32.4 g/dL (33-37); MEAN CORP VOLUME 100.7 fL (78-100); MEAN PLATELET VOLUME 10.2 fL (7.8-11.0); RED CELL DISTRIBUTION WIDTH 13.7 % (11.5-14.5); WHITE BLOOD CELL 8.3 10^3/uL (4.5-11.0)
[2017-12-07] MEDS: LACTATED RINGERS 1,000 ML IV SCH ×2 (10:40→20:40)
--- NOTE | 2017-12-07 11:21 | PRM.PN ---
Subjective Subjective Date: Dec 07, 2017 Time: 11:18 Subjective Pain worse this am Complains that entire leg is hurting even in bed laying down Using fentynl for Pain VSS HGB 9.2 Will recheck xrays and Sonogram Patient History: Asthma G8 SISTER Cerebrovascular disorder 33 FATHER, , Age:84 Chronic obstructive pulmonary disease G8 BROTHER Congestive heart failure 33 FATHER, , Age:84 Diabetes mellitus 19 CHILD FH: skin cancer 33 FATHER, , Age:84 Hypertension 32 MOTHER, , Age:82 33 FATHER, , Age:84 No known health problems G8 SISTER 19 CHILD 19 CHILD 19 CHILD No Family History of: Alzheimer's disease Diabetes insipidus Parkinson's disease VTE VTE Risk Total Score: >5 VTE Risk Score VTE Risk: Score 0-1 = Low Risk (Aggressive mobilization; early ambulation; no VTE prophylaxis required) Score 2: Moderate Risk (Intermittent/Pneumatic Compression Device OR Lovenox/Heparin/Coumadin) Score 3-4: High Risk (Intermittent/Pneumatic Compression Device AND Lovenox/Heparin/Coumadin) Score > or =5: Highest Risk (Intermittent/Pneumatic Compression Device AND Lovenox/Heparin/Coumadin) Review of Systems Allergies: Coded Allergies: ceftriaxone (Verified Allergy, Severe, Anaphylaxis Shock, 11/26/17) ipratropium (Verified Allergy, Severe, BLISTERS IN MOUTH, 11/26/17) lactose (Verified Allergy, Severe, 12/06/17) lettuce (Verified Allergy, Severe, Anaphylaxis Shock, 11/26/17) Scheduled Bupropion Hcl (Wellbutrin Xl), 1 TAB PO DAILY, (Reported) Levothyroxine Sodium (Levothyroxine Sodium), 1 TAB PO DAILY, (Reported) Loratadine (Claritin), 1 TAB PO DAILY, (Reported) Nitrofurantoin Macrocrystal (Macrodantin), 1 CAP PO HS, (Reported) Scheduled PRN Baclofen (Baclofen), 1 TAB PO HS PRN for MUSCLE SPASM, (Reported) Tramadol Hcl (Tramadol Hcl), 0.5 TAB PO TID PRN for PAIN, (Reported) Objective Vitals and I/O Vital Sign - Last 24 Hours 12/06/17 12/06/17 12/06/17 12/06/17 11:54 16:02 19:15 19:15 Temp 98.4 98.1 98.2 Pulse 78 74 80 Resp 20 20 20 B/P (MAP) 133/69 (90) 115/65 (82) 125/72 (89) Pulse Ox 98 100 96 O2 Delivery Room Air Room Air Room Air Room Air 12/06/17 12/07/17 12/07/17 12/07/17 23:36 00:02 04:36 08:06 Temp 97.7 97.9 98.1 Pulse 80 77 73 74 Resp 16 20 20 18 B/P (MAP) 135/80 (98) 136/77 (96) 128/84 (99) Pulse Ox 96 97 97 94 O2 Delivery Room Air Room Air Room Air Room Air 12/07/17 12/07/17 08:42 09:20 Pulse 78 Resp 18 Pulse Ox 96 O2 Delivery Room Air Room Air Intake and Output 12/06/17 12/06/17 12/07/17 15:00 23:00 07:00 Intake Total 1000 ml Output Total 550 ml 650 ml 700 ml Balance -550 ml 350 ml -700 ml Course Sepsis Screening Results: Posi: NEGATIVE Sepsis Qualifier/Stage: NO DEFINITE RISK Vitals & review Data Vital Sign - Last 24 Hours 12/01/17 12/01/17 12/01/17 12/01/17 09:00 09:00 09:45 09:50 Temp 98.6 Pulse 80 72 68 Resp 19 18 16 B/P (MAP) 134/80 (98) 134/80 (98) 133/77 (95) Pulse Ox 95 97 98 O2 Delivery Room Air Room Air Nasal Canula Nasal Canula O2 Flow Rate 2 2 12/01/17 12/01/17 12/01/17 12/01/17 09:55 14:19 14:19 14:32 Temp 97.6 98.4 Pulse 67 68 60 Resp 18 16 16 B/P (MAP) 135/73 (93) 139/79 (99) 114/66 (82) Pulse Ox 98 100 100 O2 Delivery Nasal Can[place] Face Tent Face Tent O2 Flow Rate 2 10 10 3 12/01/17 12/01/17 12/01/17 12/01/17 14:49 15:04 15:31 16:21 Temp 98.1 98.9 Pulse 60 62 61 Resp 18 16 16 B/P (MAP) 112/62 (79) 110/71 (84) Pulse Ox 96 96 97 O2 Delivery Nasal Canula Nasal Canula Nasal Cannula Nasal Cannula O2 Flow Rate 3 3 1.50 2.00 FiO2 28 12/01/17 16:24 Resp 16 Pulse Ox 97 Laboratory Tests Test 12/01/17 18:02 White Blood Count 21.0 10^3/uL Red Blood Count 3.27 10^6/uL Hemoglobin 10.9 g/dL Hematocrit 32.4 % Mean Corpuscular Volume 99.1 fL Mean Corpuscular Hemoglobin 33.3 pg Mean Corpuscular Hemoglobin Concent 33.6 g/dL Red Cell Distribution Width 12.9 % Platelet Count 308 10^3/uL Mean Platelet Volume 10.7 fL Current Medications Medications (Trade) Dose Ordered Sig/Evelin PRN Reason Start Time Stop Time Status Last Admin Acetaminophen (Tylenol) 1,000 mg Q6H 12/01/17 06:30 12/31/17 06:29 12/01/17 17:32 Albuterol Sulfate (Ventolin) 2.5 mg OT PRN WHEEZING 12/01/17 14:30 12/06/17 14:29 Celecoxib (Celebrex) 200 mg BID 12/01/17 21:00 12/31/17 20:59 Famotidine (Pepcid) 20 mg DAILY 12/02/17 09:00 01/01/18 08:59 Fentanyl Citrate (Sublimaze) 12.5 mcg Q5MIN PRN PAIN 12/01/17 14:30 12/02/17 14:29 Gabapentin (Neurontin) 400 mg Q24HRS 12/02/17 06:30 12/02/17 06:31 Gabapentin (Neurontin) 400 mg Q24HRS 12/02/17 08:00 12/02/17 08:01 Meperidine HCl (Demerol) 50 mg Q4HR PRN PAIN 8-10 12/01/17 15:00 12/31/17 14:59 Morphine Sulfate (Morphine Sulfate) 2 mg Q5MIN PRN PAIN MILD 12/01/17 14:30 12/02/17 14:29 Ondansetron HCl (Zofran) 4 mg PRN PRN nv 12/01/17 14:30 12/06/17 14:29 Ondansetron HCl (Zofran) 4 mg Q4H PRN NAUSEA / VOMITING 12/01/17 15:00 12/31/17 14:59 Promethazine HCl (Phenergan) 0.625 mg PRN PRN NAUSEA / VOMITING 12/01/17 14:30 12/06/17 14:29 Rivaroxaban (Xarelto) 10 mg DAILY 12/02/17 09:00 01/01/18 08:59 Throat Lozenges (Cepacol Sore Throat Lozenge) 1 each PRN PRN SORE THROAT 12/01/17 15:00 12/31/17 14:59 Tramadol HCl (Ultram) 50 mg Q6H PRN MILD PAIN 12/01/17 15:00 12/31/17 14:59 Tramadol HCl (Ultram) 100 mg Q6H PRN SEVERE PAIN 12/01/17 15:00 12/31/17 14:59 12/01/17 16:23 Vancomycin HCl 1 gm/Sodium Chloride 250 ml @ 175 mls/hr Q12H 12/01/17 21:00 12/02/17 22:26 SONJA KIM MD Dec 07, 2017 11:21
--- NOTE | 2017-12-07 12:22 | DIREP ---
PROCEDURE:XRAY HIP MIN 2VW-RT COMPARISON:[facility], CT, CT LOWER EXTREMITY-RT W/O, 12/05/2017, 09:28 AM. [facility], CR, XRAY HIP MIN 2VW-RT, 12/03/2017, 04:01 PM. [facility], CR, XRAY HIP MIN 2VW-RT, 12/01/2017, 03:12 PM. INDICATIONS:right hip pain FINDINGS: BONES:Subtle nondisplaced fracture through the most proximal portion of the remaining femur, adjacent to the greater trochanter JOINTS:Total arthroplasty, non cement prosthesis SOFT TISSUES:Skin adrianne OTHER:No additional findings. CONCLUSION:Lucency consistent with fracture most proximal portion of the femur adjacent to the greater trochanter. Dictated by: Nael Gonzales MD on 12/07/2017 at 12:17 PM
--- NOTE | 2017-12-07 15:25 | DIREP ---
PROCEDURE:US DUPLEX EXTREM VEINS UNILATER/LIMITED-RT COMPARISON:None. INDICATIONS:right leg pain and swelling postop TECHNIQUE:The right lower extremity was evaluated utilizing salgado scale images with segmental compression, color Doppler, and spectral Doppler with respiratory variation and augmentation. FINDINGS: Common femoral vein:Patent Superficial femoral vein:Patent Popliteal vein:Patent Posterior tibial vein:Patent Peroneal vein:Patent Greater saphenous vein:Patent Waveforms are within normal limits. CONCLUSION:No right lower extremity DVT or SVT. Dictated by: Kim Roth MD on 12/07/2017 at 03:23 PM
[2017-12-07] MEDS: ULTRAM PO PRN ×2 (16:09→23:57)
--- NOTE | 2017-12-07 18:45 | NUR ---
report received report from offgoing shift
--- NOTE | 2017-12-07 19:30 | NUR ---
Discussed with Dr. Carter using IV Tylenol for pain control for patient at this time, in hopes to provide patient enough relief to perform some ADL's with minimal assist. Dr. Carter agreed, Dr. Ozuna to be notified of new order for Tylenol IV as per protocol.
--- NOTE | 2017-12-07 20:00 | NUR ---
Dr. Ozuna approved IV Tylenol x1 dose for pain control for time being.
[2017-12-07] MEDS ORDERED: OFIRMEV IV PRN (20:30)
[2017-12-07] MEDS ORDERED: NS 250ML 250 ML IV ONE (22:00)
[2017-12-08] MEDS: TYLENOL PO SCH ×3 (00:30→11:32)
[2017-12-08 00:35] VITALS: BP 118/71
[2017-12-08] MEDS: ULTRAM PO SCH ×4 (03:57→12:00)
[2017-12-08] MEDS: VALIUM PO PRN ×2 (04:18→11:32)
[2017-12-08 04:44] VITALS: BP 123/78
[2017-12-08] MEDS: ULTRAM PO PRN (06:09)
[2017-12-08] MEDS: SYNTHROID PO SCH (06:09)
--- NOTE | 2017-12-08 06:30 | NUR ---
Report Received report and assumed care of pt
[2017-12-08] MEDS: LACTATED RINGERS 1,000 ML IV SCH (06:40)
--- NOTE | 2017-12-08 06:42 | NUR ---
report report given to o/c shift
[2017-12-08] MEDS: SUBLIMAZE IV PRN (06:55)
[2017-12-08 07:56] VITALS: BP 122/67
[2017-12-08] MEDS: COLACE PO SCH (08:20)
[2017-12-08] MEDS: XARELTO PO SCH (08:20)
[2017-12-08] MEDS: PEPCID PO SCH (08:20)
[2017-12-08] MEDS: WELLBUTRIN XL PO SCH (08:22)
[2017-12-08] MEDS: CLARITIN PO SCH (08:22)
[2017-12-08] MEDS: BACTROBAN TP SCH (08:22)
[2017-12-08] MEDS: CELEBREX PO SCH (08:22)
--- NOTE | 2017-12-08 09:55 | PRM.PN ---
Subjective Subjective Date: Dec 08, 2017 Time: 09:52 Subjective Pain about the same No better with IV Tylenol VSS Sonogram negative Xrays unchanged Will have anesthesia repeat block [place] [facility] [place] Patient History: Asthma G8 SISTER Cerebrovascular disorder 33 FATHER, , Age:84 Chronic obstructive pulmonary disease G8 BROTHER Congestive heart failure 33 FATHER, , Age:84 Diabetes mellitus 19 CHILD FH: skin cancer 33 FATHER, , Age:84 Hypertension 32 MOTHER, , Age:82 33 FATHER, , Age:84 No known health problems G8 SISTER 19 CHILD 19 CHILD 19 CHILD No Family History of: Alzheimer's disease Diabetes insipidus Parkinson's disease VTE VTE Risk Total Score: >5 VTE Risk Score VTE Risk: Score 0-1 = Low Risk (Aggressive mobilization; early ambulation; no VTE prophylaxis required) Score 2: Moderate Risk (Intermittent/Pneumatic Compression Device OR Lovenox/Heparin/Coumadin) Score 3-4: High Risk (Intermittent/Pneumatic Compression Device AND Lovenox/Heparin/Coumadin) Score > or =5: Highest Risk (Intermittent/Pneumatic Compression Device AND Lovenox/Heparin/Coumadin) Review of Systems Allergies: Coded Allergies: ceftriaxone (Verified Allergy, Severe, Anaphylaxis Shock, 11/26/17) ipratropium (Verified Allergy, Severe, BLISTERS IN MOUTH, 11/26/17) lactose (Verified Allergy, Severe, 12/06/17) lettuce (Verified Allergy, Severe, Anaphylaxis Shock, 11/26/17) Scheduled Bupropion Hcl (Wellbutrin Xl), 1 TAB PO DAILY, (Reported) Levothyroxine Sodium (Levothyroxine Sodium), 1 TAB PO DAILY, (Reported) Loratadine (Claritin), 1 TAB PO DAILY, (Reported) Nitrofurantoin Macrocrystal (Macrodantin), 1 CAP PO HS, (Reported) Scheduled PRN Baclofen (Baclofen), 1 TAB PO HS PRN for MUSCLE SPASM, (Reported) Tramadol Hcl (Tramadol Hcl), 0.5 TAB PO TID PRN for PAIN, (Reported) Objective Vitals and I/O Vital Sign - Last 24 Hours 12/07/17 12/07/17 12/07/17 12/07/17 12:25 15:43 15:50 19:35 Temp 97.6 97.6 98.6 Pulse 76 85 75 Resp 18 16 16 B/P (MAP) 131/78 (95) 129/72 (91) 132/82 (99) Pulse Ox 98 97 96 O2 Delivery Room Air Room Air Room Air Room Air 12/07/17 12/07/17 12/07/17 12/08/17 20:01 23:17 23:17 00:35 Temp 97.7 98.1 Pulse 75 75 75 Resp 17 18 18 B/P (MAP) 127/77 (94) 118/71 (87) Pulse Ox 98 98 98 94 O2 Delivery Room Air Room Air Room Air 12/08/17 12/08/17 12/08/17 12/08/17 04:44 07:56 08:43 09:37 Temp 98.0 97.6 Pulse 75 74 74 Resp 17 20 20 B/P (MAP) 123/78 (93) 122/67 (85) Pulse Ox 95 97 97 O2 Delivery Room Air Room Air Room Air Room Air Intake and Output 12/07/17 12/07/17 12/08/17 15:00 23:00 07:00 Intake Total 600 ml Output Total 400 ml 200 ml Balance -400 ml 600 ml -200 ml Course Sepsis Screening Results: Posi: NEGATIVE Sepsis Qualifier/Stage: NO DEFINITE RISK Vitals & review Data Vital Sign - Last 24 Hours 12/01/17 12/01/17 12/01/17 12/01/17 09:00 09:00 09:45 09:50 Temp 98.6 Pulse 80 72 68 Resp 19 18 16 B/P (MAP) 134/80 (98) 134/80 (98) 133/77 (95) Pulse Ox 95 97 98 O2 Delivery Room Air Room Air Nasal Canula Nasal Canula O2 Flow Rate 2 2 12/01/17 12/01/17 12/01/17 12/01/17 09:55 14:19 14:19 14:32 Temp 97.6 98.4 Pulse 67 68 60 Resp 18 16 16 B/P (MAP) 135/73 (93) 139/79 (99) 114/66 (82) Pulse Ox 98 100 100 O2 Delivery Nasal [place] Face Tent Face Tent O2 Flow Rate 2 10 10 3 12/01/17 12/01/17 12/01/17 12/01/17 14:49 15:04 15:31 16:21 Temp 98.1 98.9 Pulse 60 62 61 Resp 18 16 16 B/P (MAP) 112/62 (79) 110/71 (84) Pulse Ox 96 96 97 O2 Delivery Nasal Canula Nasal Canula Nasal Cannula Nasal Cannula O2 Flow Rate 3 3 1.50 2.00 FiO2 28 12/01/17 16:24 Resp 16 Pulse Ox 97 Laboratory Tests Test 12/01/17 18:02 White Blood Count 21.0 10^3/uL Red Blood Count 3.27 10^6/uL Hemoglobin 10.9 g/dL Hematocrit 32.4 % Mean Corpuscular Volume 99.1 fL Mean Corpuscular Hemoglobin 33.3 pg Mean Corpuscular Hemoglobin Concent 33.6 g/dL Red Cell Distribution Width 12.9 % Platelet Count 308 10^3/uL Mean Platelet Volume 10.7 fL Current Medications Medications (Trade) Dose Ordered Sig/Evelin PRN Reason Start Time Stop Time Status Last Admin Acetaminophen (Tylenol) 1,000 mg Q6H 12/01/17 06:30 12/31/17 06:29 12/01/17 17:32 Albuterol Sulfate (Ventolin) 2.5 mg OT PRN WHEEZING 12/01/17 14:30 12/06/17 14:29 Celecoxib (Celebrex) 200 mg BID 12/01/17 21:00 12/31/17 20:59 Famotidine (Pepcid) 20 mg DAILY 12/02/17 09:00 01/01/18 08:59 Fentanyl Citrate (Sublimaze) 12.5 mcg Q5MIN PRN PAIN 12/01/17 14:30 12/02/17 14:29 Gabapentin (Neurontin) 400 mg Q24HRS 12/02/17 06:30 12/02/17 06:31 Gabapentin (Neurontin) 400 mg Q24HRS 12/02/17 08:00 12/02/17 08:01 Meperidine HCl (Demerol) 50 mg Q4HR PRN PAIN 8-10 12/01/17 15:00 12/31/17 14:59 Morphine Sulfate (Morphine Sulfate) 2 mg Q5MIN PRN PAIN MILD 12/01/17 14:30 12/02/17 14:29 Ondansetron HCl (Zofran) 4 mg PRN PRN nv 12/01/17 14:30 12/06/17 14:29 Ondansetron HCl (Zofran) 4 mg Q4H PRN NAUSEA / VOMITING 12/01/17 15:00 12/31/17 14:59 Promethazine HCl (Phenergan) 0.625 mg PRN PRN NAUSEA / VOMITING 12/01/17 14:30 12/06/17 14:29 Rivaroxaban (Xarelto) 10 mg DAILY 12/02/17 09:00 01/01/18 08:59 Throat Lozenges (Cepacol Sore Throat Lozenge) 1 each PRN PRN SORE THROAT 12/01/17 15:00 12/31/17 14:59 Tramadol HCl (Ultram) 50 mg Q6H PRN MILD PAIN 12/01/17 15:00 12/31/17 14:59 Tramadol HCl (Ultram) 100 mg Q6H PRN SEVERE PAIN 12/01/17 15:00 12/31/17 14:59 12/01/17 16:23 Vancomycin HCl 1 gm/Sodium Chloride 250 ml @ 175 mls/hr Q12H 12/01/17 21:00 12/02/17 22:26 SONJA KIM MD Dec 08, 2017 09:55
--- NOTE | 2017-12-08 10:25 | NUR ---
DISCHARGE PLAN UPDATE CM FOLLOWED UP WITH PATIENT REGARDING SWING BED PLACEMENT. PATIENT WANTS TO GO TO [facility] SW[facility] IN [place]. UPDATED PHYSICAL THERAPY NOTES FAXED TO SWING BED FACILITY. PATIENT WILL BE TRANSPORTED BY AMBULANCE. CM DEPT WILL CONTINUE TO MONITOR DISCHARGE NEEDS.
--- NOTE | 2017-12-08 10:38 | NUR ---
Vásquez 300ml of light demian urine with sediment drained. Vásquez Catheter removed. Shital care provided. Educated pt on DTV time. Pt able to verbalize understanding. Educated pt to call when she was ready to use the restroom. Pt able to verbalize understanding. Call light within reach. Addendum: 12/08/17 at 1045 by Gilma Castañeda RN - Aj HALL Entered on wrong pt
[2017-12-08] MEDS ORDERED: LIDOCAINE 2% VIAL ONE (11:26)
[2017-12-08] MEDS ORDERED: DECADRON ONE (11:26)
[2017-12-08] MEDS ORDERED: NAROPIN 0.5% 5 MG/ML VIAL ONE (11:26)
[2017-12-08] MEDS ORDERED: CLONIDINE 1,000 MCG/10 ML VIAL EP ONE (11:26)
--- NOTE | 2017-12-08 11:50 | NUR ---
Nerve Block TORPEDO SPECIALIST at bedside for nerve block in right hip
[2017-12-08 12:08] VITALS: BP 124/82
--- NOTE | 2017-12-08 12:18 | NUR ---
Dr Carter requests right fascia iliaca block for pt d/t non-displaced hip fx. Anesthesia provider discussed procedure with pt and pt agrees to block. Pt connected to telemetry, b/p, pulse ox, and O2 per nc. Pt v/s stable. Time out completed and block performed without complication or complaint from pt. Pt tolerated procedure very well.
[2017-12-08] MEDS ORDERED: TRAM-47 PO (12:30)
[2017-12-08] MEDS ORDERED: RIVA10TA PO (12:31)
[2017-12-08] MEDS ORDERED: DIAZ5TAB PO (12:32)
--- NOTE | 2017-12-08 13:15 | NUR ---
UPDATE TO [facility] CM FAXED PATIENTS DISCHARGE INSTRUCTIONS TO [facility] TO ACCOMMODATE PATIENTS TRANSITION OF CARE TO FACILITY. CM ATTEMPTED TO CALL [facility], UNABLE BUT LEFT DETAILED MESSAGE ON RONNA'S ADMISSION COORDINATORS CONFIDENTIAL VOICEMAIL OF PATIENTS TENTATIVE DISCHARGE FOR TODAY. CM WILL CONTINUE TO FOLLOW
--- NOTE | 2017-12-08 15:05 | NUR ---
[facility] SW[facility] APPROVAL [facility] MODEL DRESSER NOTIFIED CM DEPARTMENT WITH PATIENTS SWING BED APPROVAL TO TODAY. SHE STATED PATIENT CAN COME ANYTIME ONCE MED SURG NURSING CALL REPORT TO [phone]. MED SURG NURSING Poly MCNAMARA RN NOTIFIED. NO FURTHER CM OR DISCHARGE NEEDS KNOWN @ THIS TIME.
--- NOTE | 2017-12-08 15:15 | NUR ---
[facility] Report called in to [facility] bed. Answered all nurse questions.
--- NOTE | 2017-12-08 15:20 | NUR ---
Discharge Pictures Discharge pictures taken and placed in chart
--- NOTE | 2017-12-08 15:30 | NUR ---
Pt off unit Pt transferred off unit via stretcher by EMS. No s/s of distress noted.
--- NOTE | 2017-12-08 17:24 | DSH ---
DATE OF DISCHARGE: 12/08/2017 ADMITTING DIAGNOSIS: Include osteoarthritis of the right hip. OTHER DIAGNOSES: Include depression, asthma, gastroesophageal reflux disease. DISCHARGE DIAGNOSES: Include osteoarthritis of the right hip plus postoperative anemia secondary to surgery expected. CONSULTATIONS: None. COMPLICATIONS: Minimally displaced right greater trochanter fracture postoperatively. SUMMARY OF ADMISSION: The patient is a 67-year-old female with pain about the right hip for several years secondary to osteoarthritis. It had gotten to the point where the patient was having difficulty with her daily activities because of pain about the hip. The patient's x-rays showed that she was circumferentially [id number] about the hip. She has gotten to the point where she uses a cane at times to ambulate. The patient was taken to the operating room on 12/01/2017 for right total hip arthroplasty. The patient's procedure was performed on 12/01/2017. She had a press fit right total hip arthroplasty. Initially, the patient was doing well. Approximately, the third day postop, she was getting back into her bed and felt sudden pain about the right hip. The patient's x-rays at that point showed that she had a minimally displaced greater trochanteric fracture about the hip. The patient has been treated with limited weightbearing. She has continued to complain of pain about the hip thereafter. Subsequent x-rays and a CT scan did not show other fractures about the hip. The patient's sonogram yesterday was negative for a DVT. The patient has been on Xarelto as well as foot pump and SCDs for DVT prophylaxis. She has required IV fentanyl as well as tramadol and Valium for the pain. On discharge, the patient complains of pain that goes from her hip all the way down to her foot. She states that it is present whether she is lying in bed or trying to get up in her chair. She can ambulate about 10 feet with a walker, toe-touch weightbearing. The patient's wound is benign. Again, she has been on a regular diet throughout her postoperative course. On discharge, the patient's wound is benign. She has no muscle spasm or guarding to palpation. There is no excessive swelling about the leg. All her compartments are soft. She has normal flexion and extension of her right foot and normal sensation about the right lower extremity. The patient's vital signs are stable. The patient's hemoglobin postoperatively dropped to a low of 8.5 on 12/06/2017. Yesterday, her hemoglobin was 9.2 with hematocrit 28.4. Her vital signs and urine output have been stable. The patient will be discharged to the [facility] bed for prolonged physical therapy. The patient will continue with her 25% weightbearing status. They will continue with the Xarelto for the DVT prophylaxis. The patient will be seen back in my office prior to or after she is discharged from the [facility]. The patient has extreme difficulty with even short distances with ambulation and has pain with sitting in a chair and so in my opinion she needs to be transferred via an ambulance. Len Carter MD DR: DAVID/marlene JOB# [id number]
--- NOTE | 2017-12-09 10:20 | NUR ---
Follow up for post fascia iliaca block to right hip. Pt called at swing bed facility in [facility]. Spoke with pt's about pt condition. Pt doing well. Nerve block helped with pain control and pt able to do some physical therapy with leg that pt was unable to perform before d/t pain.
== END 2017-12-08 15:46 | disposition swing bed (61) | DRG 470 ==
LOC: MS 12-01 03:27
PROVIDERS: ADMIT Orthopaedic Surgery; ATTEND Pediatrics
PROC: 0SR904A Replacement of Right Hip Joint with Ceramic on Polyethylene Synthetic Substitute, Uncemented, Open Approach (ICD-10-PCS; principal; 2017-12-01 11:10)
DX: M16.11 Unilateral primary osteoarthritis, right hip (principal); D62 Acute posthemorrhagic anemia; M80.051A Age-related osteoporosis with current pathological fracture, right femur, initial encounter for fracture; J45.909 Unspecified asthma, uncomplicated; K21.9 Gastro-esophageal reflux disease without esophagitis; F32.9 Major depressive disorder, single episode, unspecified; M35.00 Sjogren syndrome, unspecified; Z88.1 Allergy status to other antibiotic agents; Z88.5 Allergy status to narcotic agent; Z79.1 Long term (current) use of non-steroidal anti-inflammatories (NSAID); Z79.899 Other long term (current) drug therapy; Z87.440 Personal history of urinary (tract) infections; Z82.49 Family history of ischemic heart disease and other diseases of the circulatory system; Z82.5 Family history of asthma and other chronic lower respiratory diseases; Z82.3 Family history of stroke; Z80.8 Family history of malignant neoplasm of other organs or systems; X58.XXXA Exposure to other specified factors, initial encounter; Y93.89 Activity, other specified; Y92.89 Other specified places as the place of occurrence of the external cause; Y99.8 Other external cause status
CPT/HCPCS: 36415; 71046; 73502; 73700; 76000; 80053; 81002; 85027; 87070; 97162; 97165; 97530; J0131; J0330; J1100; J2001; J2175; J2250; J2405; J2710; J2795; J3010; J3490; J7030; J7050; J7120; 93971; 97110-GP; 97116-GP; 97535-GO; 97542-GP; G8978-CJ; G8978-CK; G8979-CI; G8979-CJ; G8987; G8988; J2274; J8499

== ENCOUNTER → 2022-08-28 | Outpatient (CLI) | payer MEDICARE ==
[~2022-08-28] MED LIST: BACL20TA PO; BUPR150T17 PO; DIAZ5TAB PO; LEVO100T5 PO; LORA10TA75 PO; RIVA10TA PO; TRAM-47 PO; TRAM50TA PO; [UNRECOGNIZED DRUG - CODE] PO
--- NOTE | 2022-08-28 15:23 | DIREP ---
PROCEDURE:NM GALLBLADDER SCAN/[facility] COMPARISON:None. INDICATIONS:UPPER ABDOMINAL PAIN TECHNIQUE:After obtaining the patient's consent, radiopharmaceutical was injected and images obtained sequentially for one hour. PHARMACEUTICAL(S):8.1 mCi Tc-99m JAYA derivative. FINDINGS: LIVER:Unremarkable hepatic uptake and excretion of radiotracer. BILIARY DUCTS:Biliary ducts are visualized at 10 minutes. GALLBLADDER:Gallbladder is visualized at 25 minutes. INTESTINE:Small bowel is visualized at 15 minutes. EJECTION FRACTION:36%. Normal is greater than 50% at 15-20 minutes, EF between 35%-50% is equivocal. Administration of an 8 oz ensure plus as a CCK substitute resulted in reported 4/10 abdominal pain with left upper quadrant burning sensation. It should be noted that the patient arrived in the department with reported 1/10 upper abdominal pain prior to initiating the examination; however, this worsened following administration of the 8 oz ensure plus. CONCLUSION: 1. Patent cystic and common ducts. 2. Calculated gallbladder ejection fraction of 36% is equivocal/borderline abnormally decreased. 3. 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 Dictated by: Otis Ozuna M.D. On 08/28/2022 at 03:14 PM
== END | disposition home or self-care (01) ==
LOC: RAD 10:34
PROVIDERS: ATTEND Surgery Surgical Oncology
DX: R10.10 Upper abdominal pain, unspecified (principal)
CPT/HCPCS: 78227; A9537